=== PATIENT | female | born 1950 | race Hispanic/Latino ===

== ENCOUNTER 2017-11-09 18:53 | Observation (INO) | payer OTHER ==
[~2017-11-09] VITALS: Ht 165.1 cm; Wt 89.9 kg
[2017-11-09 19:14] LABS: APPEARANCE,URINE Cloudy (CLEAR); BILIRUBIN,URINE Negative (NEGATIVE); COLOR,URINE Yellow (YELLOW); GLUCOSE, URINE (UA) Negative (NEGATIVE); KETONES,URINE Negative (NEGATIVE); LEUKOCYTE ESTERASE ,URINE Large (NEGATIVE); NITRATE,URINE Negative (NEGATIVE); OCCULT BLOOD,URINE Small (NEGATIVE); PH,URINE 5.5 (5.0-8.0); PROTEIN,URINE POS 1+ (NEGATIVE)
[2017-11-09] MEDS ORDERED: ACETAMINOPHEN 325 MG TAB ONE (19:45)
[2017-11-09 19:48] LABS: BASOPHILS % (AUTO) 0.8 % (0.0-5.0); EOSINOPHILS % (AUTO) 1.5 % (0.0-8.0); HEMATOCRIT 38.3 % (36-48); LYMPHOCYTES % (AUTO) 23.2 % (21.0-51.0); MEAN CORPUSCULAR HEMOGLOBIN 30.3 pg (27.0-33.0); MEAN CORPUSCULAR HGB CONC 34.1 g/dL (32.0-36.0); MEAN CORPUSCULAR VOLUME 88.8 fL (79-99); MONOCYTES % (AUTO) 14.1 % (3.0-13.0); NEUTROPHILS % (AUTO) 60.4 % (40.0-77.0); PLATELET COUNT (AUTO) 275 K/uL (130-400); RED BLOOD CELL COUNT(AUTO) 4.31 MIL/uL (4.00-5.50); RED CELL DISTRIBUTION WIDTH 13.1 % (11.0-15.5); WHITE BLOOD COUNT (AUTO) 8.2 K/uL (4.8-10.8)
[2017-11-09 19:55] LABS: BACTERIA,URINE Rare /HPF (None Seen); RBC,URINE 0-1 /HPF (0-1); WBC,URINE >100 /HPF (0-1)
[2017-11-09 19:56] LABS: MUCUS,URINE Many LPF (None Seen)
[2017-11-09 20:06] LABS: CREATININE 0.8 mg/dL (0.5-1.5)
[2017-11-09 20:11] LABS: ALBUMIN 3.4 g/dL (3.5-5.0); BILIRUBIN,TOTAL 0.3 mg/dL (0.2-1.0); TOTAL PROTEIN, SERUM 7.1 g/dL (6.0-8.3)
[2017-11-09] MEDS ORDERED: SODIUM CHLORIDE 0.9% 1000ML 1,000 ML IV ONE (21:42)
[2017-11-09] MEDS ORDERED: ACETAMINOPHEN 325 MG TAB PO PRN ×3 (21:45→22:15)
[2017-11-09] MEDS ORDERED: ONDANSETRON HCL 4 MG/2 ML VIAL IVP PRN (21:45)
[2017-11-09] MEDS ORDERED: CEFTRIAXONE SODIUM 1 GM IVP SCH (21:45)
[2017-11-09] MEDS: SODIUM CHLORIDE 0.9% 1000ML 1,000 ML IV SCH (21:45)
[2017-11-09] MEDS ORDERED: MORPHINE SULFATE 4 MG/1ML SYG IVP PRN (21:45)
[2017-11-09] MEDS ORDERED: LIDOCAINE HCL-MPF 1% 2ML VIAL IVP PRN (22:15)
[2017-11-09] MEDS ORDERED: LACTULOSE 20 GM/30 ML UDCUP PO PRN (22:15)
[2017-11-09] MEDS ORDERED: NAPROXEN 500 MG TABLET PO PRN (22:15)
[2017-11-09] MEDS ORDERED: MAG HYDROX/AL HYDROX/SIMETH ES 30 ML SUSP UDCUP PO PRN (22:15)
[2017-11-09] MEDS ORDERED: POTASSIUM CHLORIDE 20 MEQ ERTAB PO PRN (22:15)
[2017-11-09] MEDS ORDERED: POTASSIUM CHLORIDE 10% ELIXIR 20 MEQ/15 ML UDCUP PO PRN (22:15)
[2017-11-09] MEDS ORDERED: POTASSIUM CHLORIDE 20MEQ/100ML 100 ML IV PRN (22:15)
[2017-11-09] MEDS ORDERED: ONDANSETRON HCL MDV 20ML 2 MG/ML VIAL IV PRN (22:15)
[2017-11-09] MEDS ORDERED: MORPHINE SULFATE 4 MG/1ML SYG IV PRN (22:15)
[2017-11-09] MEDS ORDERED: ACETAMINOPHEN-CODEINE 300/30MG TAB PO PRN (22:15)
[2017-11-09 23:16] VITALS: BP 130/63
[2017-11-10] VITALS (13 sets, daily range): BP systolic 112–158; BP diastolic 60–72
[2017-11-10] MEDS ORDERED: LORAZEPAM 0.5 MG TABLET ONE (00:10)
[2017-11-10] MEDS ORDERED: LORAZEPAM 0.5 MG TABLET PO PRN (00:15)
[2017-11-10] MEDS ORDERED: MAGNESIUM HYDROXIDE 30 ML/UDCUP PO PRN (00:15)
[2017-11-10 00:54] LABS: CREATINE KINASE MB 0.5 ng/mL (0.5-3.6); CREATINE KINASE, TOTAL 56 U/L (21-232); MYOGLOBIN 23 ng/mL (10-92); TROPONIN I < 0.04 ng/mL (0.00-0.06)
[2017-11-10] MEDS ORDERED: SUCRALFATE 1 GM/10 ML PO PRN (01:30)
[2017-11-10] MEDS: SODIUM CHLORIDE 0.9% 1000ML 1,000 ML IV SCH ×3 (03:59→16:53)
[2017-11-10 05:40] LABS: HEMATOCRIT 34.9 % (36-48); MEAN CORPUSCULAR HEMOGLOBIN 30.7 pg (27.0-33.0); MEAN CORPUSCULAR HGB CONC 34.7 g/dL (32.0-36.0); MEAN CORPUSCULAR VOLUME 88.4 fL (79-99); PLATELET COUNT (AUTO) 244 K/uL (130-400); RED BLOOD CELL COUNT(AUTO) 3.94 MIL/uL (4.00-5.50); RED CELL DISTRIBUTION WIDTH 13.2 % (11.0-15.5); WHITE BLOOD COUNT (AUTO) 8.6 K/uL (4.8-10.8)
[2017-11-10 05:49] LABS: CREATININE 0.8 mg/dL (0.5-1.5); POTASSIUM 4.7 mmol/L (3.5-5.1)
[2017-11-10] MEDS ORDERED: PANTOPRAZOLE SODIUM 40 MG TABLET.DR PO SCH (09:00)
[2017-11-10] MEDS ORDERED: ENOXAPARIN SODIUM 30 MG/0.3 ML SQ SCH (09:00)
[2017-11-10] MEDS ORDERED: LEVOTHYROXINE 125 MCG TABLET PO SCH (09:00)
[2017-11-10] MEDS ORDERED: LACTATED RINGERS 1000ML 1,000 ML IV ONE (09:04)
[2017-11-10] MEDS ORDERED: ISOVUE-370 50ML VIAL IV ONE (09:22)
[2017-11-10] MEDS ORDERED: ONDANSETRON HCL 4 MG/2 ML VIAL ONE (09:38)
[2017-11-10] MEDS ORDERED: DEXAMETHASONE SOD PHOSPHATE 10MG/ML 1ML VIAL ONE (09:38)
[2017-11-10] MEDS ORDERED: MIDAZOLAM HCL 1 MG/ML 2ML VIAL ONE (09:38)
[2017-11-10] MEDS ORDERED: GLYCOPYRROLATE 0.2 MG/ML 5 ML VIAL ONE (09:38)
[2017-11-10] MEDS ORDERED: PROPOFOL 10 MG/ML 20ML VIAL IV ONE (09:38)
[2017-11-10] MEDS ORDERED: FENTANYL CITRATE PF 50 MCG/1 ML 2ML VIAL ONE (09:38)
[2017-11-10] MEDS ORDERED: LIDOCAINE PF 2% 5ML ABBOJECT ONE (09:38)
[2017-11-10] MEDS ORDERED: OPIUM/BELLADONNA ALKALOIDS 1 EACH SUPP.RECT RC ONE (10:50)
[2017-11-10] MEDS ORDERED: PHENAZOPYRIDINE HCL 200 MG TABLET PO SCH (12:11)
[2017-11-10] MEDS ORDERED: GABAPENTIN 300 MG CAPSULE PO SCH (21:00)
== END 2017-11-10 18:05 | disposition home or self-care (01) ==
LOC: EDH 18:53 → EDHIP 20:55 → 3AH 22:27
PROVIDERS: ADMIT Internal Medicine; ATTEND Internal Medicine
DX: N13.2 Hydronephrosis with renal and ureteral calculous obstruction (principal); E03.9 Hypothyroidism, unspecified; E78.5 Hyperlipidemia, unspecified; L80 Vitiligo; M48.02 Spinal stenosis, cervical region; M79.7 Fibromyalgia; M85.80 Other specified disorders of bone density and structure, unspecified site; M19.90 Unspecified osteoarthritis, unspecified site; F41.1 Generalized anxiety disorder; Z82.0 Family history of epilepsy and other diseases of the nervous system; Z80.3 Family history of malignant neoplasm of breast; Z82.49 Family history of ischemic heart disease and other diseases of the circulatory system; Z82.5 Family history of asthma and other chronic lower respiratory diseases; Z83.3 Family history of diabetes mellitus; Z87.440 Personal history of urinary (tract) infections; Z87.442 Personal history of urinary calculi; Z96.651 Presence of right artificial knee joint; Z98.84 Bariatric surgery status
CPT/HCPCS: 36415 ×2; 52356; 74176; 76000; 80048; 80053; 81001; 82360; 82550; 82553; 82948 ×4; 83874; 84484; 85025; 85027; 87040 ×2; 87088; 87186; 88300; 93005; 96374; 96375; 99285; A4218; A4344; A4358; A4450; A5113; A6207; C1726; C1758; C1769; C2617; G0378 ×21; J0696; J1100; J2001; J2250; J2270; J2405; J2704; J3010; J3490; J7030 ×2; J7120; Q9967

== ENCOUNTER → 2017-11-09 | Outpatient (CLI) | payer OTHER ==
[~2017-11-09] MED LIST: ATOR40TA71 PO; CEPH250C3 PO; CYAN250010 PO; GABA-531 PO; LEVO125T11 PO; NAPR-1023 PO; OXYB10TA PO; TYL3 PO
== END | disposition home or self-care (01) ==
LOC: RAH 14:06
PROVIDERS: ATTEND Urology
DX: N20.2 Calculus of kidney with calculus of ureter (principal); N13.30 Unspecified hydronephrosis; I87.8 Other specified disorders of veins; M47.895 Other spondylosis, thoracolumbar region
CPT/HCPCS: 74176

== ENCOUNTER → 2018-09-13 | Outpatient (CLI) | payer OTHER | END | disposition home or self-care (01) | LOC: RAH 10:00 | PROVIDERS: ATTEND Internal Medicine | DX: Z01.818 Encounter for other preprocedural examination (principal) | CPT/HCPCS: 71046 ==

== ENCOUNTER 2018-09-20 14:30 | Inpatient (IN) | payer OTHER ==
[~2018-09-20] VITALS: Ht 162.6 cm; Wt 95.7 kg
[2018-09-20 16:29] VITALS: BP 153/76
[2018-09-20 16:36] LABS: APPEARANCE,URINE Clear (CLEAR); BILIRUBIN,URINE Negative (NEGATIVE); COLOR,URINE Dark Yellow (YELLOW); GLUCOSE, URINE (UA) Negative (NEGATIVE); KETONES,URINE Negative (NEGATIVE); LEUKOCYTE ESTERASE ,URINE Moderate (NEGATIVE); NITRATE,URINE Negative (NEGATIVE); OCCULT BLOOD,URINE Negative (NEGATIVE); PH,URINE 5.5 (5.0-8.0); PROTEIN,URINE Negative (NEGATIVE)
[2018-09-20 16:46] LABS: POTASSIUM 4.9 mmol/L (3.5-5.1)
[2018-09-20 16:47] LABS: INR 0.96 (0.85-1.15); PARTIAL THROMBOPLASTIN TIME 25.4 SEC (26.3-35.5); PROTHROMBIN TIME 10.1 SEC (9.6-11.6)
[2018-09-20 16:49] LABS: BACTERIA,URINE Few /HPF (None Seen); CALCIUM OXALATE CRYSTALS,UR Few /LPF (None Seen); HYALINE CASTS, URINE 0-1 /LPF (0-1 /LPF); MUCUS,URINE Few LPF (None Seen); RBC,URINE None Seen /HPF (0-1)
--- NOTE | 2018-09-20 17:50 | NUR ---
Advised Tristin Mcclain of EKG on 09/06/18 , no new orders.
--- NOTE | 2018-09-20 18:02 | NUR ---
REPORTED ABNORMAL UA RESULTS TO DR. HOLT, ORDERS RECEIVED TO GIVE GENTAMICIN 240MG IV IN HOLDING AREA.
[2018-09-21] VITALS (25 sets, daily range): BP systolic 118–146; BP diastolic 52–88
[2018-09-21] MEDS ORDERED: LACTATED RINGERS 1000ML 1,000 ML IV ONE (07:47)
[2018-09-21] MEDS ORDERED: GENTAMICIN SULFATE 240 MG in SODIUM CHLORIDE 0.9% 100 ML IV PRN (08:00)
--- NOTE | 2018-09-21 08:00 | NUR ---
RELAXATION aromatab applied to mohamudn lavender scent Addendum: 09/21/18 at 0820 by CECE SEBASTIAN RN RN Amended: Links added.
[2018-09-21] MEDS: CEFAZOLIN SODIUM 1 GM VIAL ONE ×2 (08:13→13:14)
[2018-09-21] MEDS ORDERED: LEVO75TA10 PO (08:18)
[2018-09-21] MEDS ORDERED: DULO60CA63 PO (08:18)
--- NOTE | 2018-09-21 08:21 | NUR ---
POTENTIAL FOR INFECTION: NO SHAVING NEEDED TO RIGHT LEG / KNEE. WIPED WITH NOELLE: 2 % CHLORHEXIDINE GLUCONATE CLOTH PRE-OP PATIENTS SKIN PREP PER TREASURE CRUMP MA.
[2018-09-21] MEDS ORDERED: CEFAZOLIN SODIUM 1 GM VIAL ONE ×2 (08:30→13:58)
[2018-09-21] MEDS ORDERED: TRANEXAMIC ACID 1000MG/10ML IV ONE ×3 (08:30→15:57)
[2018-09-21] MEDS ORDERED: VANCOMYCIN HCL 1 GM VIAL ONE (09:58)
[2018-09-21] MEDS ORDERED: FENTANYL CITRATE PF 50 MCG/1 ML 2ML VIAL ONE ×2 (10:50→12:13)
[2018-09-21] MEDS ORDERED: DEXAMETHASONE SOD PHOSPHATE 10MG/ML 1ML VIAL ONE (10:50)
[2018-09-21] MEDS ORDERED: MIDAZOLAM HCL 1 MG/ML 2ML VIAL ONE (10:50)
[2018-09-21] MEDS ORDERED: ONDANSETRON HCL 4 MG/2 ML VIAL ONE (10:50)
[2018-09-21] MEDS ORDERED: PROPOFOL 10 MG/ML 20ML VIAL IV ONE (10:50)
[2018-09-21] MEDS ORDERED: LIDOCAINE PF 2% 5ML ABBOJECT ONE (10:50)
[2018-09-21] MEDS ORDERED: EPHEDRINE SULFATE 50 MG/ML AMPULE ONE (11:36)
[2018-09-21] MEDS ORDERED: ROCURONIUM 10MG/1ML SYR 10 MG/ML ML ONE ×2 (12:13→13:44)
[2018-09-21] MEDS ORDERED: CALCIUM CARBONATE 500 MG TABLET PO PRN (15:00)
[2018-09-21] MEDS ORDERED: FERROUS FUMARATE 324 MG TABLET PO PRN (15:00)
[2018-09-21] MEDS ORDERED: POTASSIUM CHLORIDE 10% ELIXIR 20 MEQ/15 ML UDCUP PO PRN (15:00)
[2018-09-21] MEDS ORDERED: POTASSIUM CHLORIDE 20 MEQ ERTAB PO PRN (15:00)
[2018-09-21] MEDS ORDERED: POTASSIUM CHLORIDE 20MEQ/100ML 100 ML IV PRN (15:00)
[2018-09-21] MEDS ORDERED: ONDANSETRON HCL 4 MG/2 ML VIAL IVP PRN (15:00)
[2018-09-21] MEDS ORDERED: TEMAZEPAM 15 MG CAPSULE PO PRN (15:00)
[2018-09-21] MEDS ORDERED: LIDOCAINE HCL-MPF 1% 2ML VIAL IVP PRN (15:00)
[2018-09-21] MEDS: ACETAMINOPHEN EXTRA STRENGTH 500 MG TABLET PO SCH ×2 (15:00→21:59)
[2018-09-21] MEDS ORDERED: DiphenhydrAMINE HCL 50 MG/ML VIAL IVP PRN (15:00)
[2018-09-21] MEDS ORDERED: OXYCODONE HCL 5 MG TAB PO PRN (15:00)
[2018-09-21] MEDS ORDERED: TRAMADOL HCL 50 MG TABLET PO PRN (15:00)
[2018-09-21] MEDS ORDERED: GLYCOPYRROLATE 1 MG/5 ML SYRINGE ONE (15:06)
[2018-09-21] MEDS ORDERED: NEOSTIGMINE 5MG/5ML SYR IV ONE (15:06)
[2018-09-21] MEDS ORDERED: MEPERIDINE-PF 25 MG/ML SYG ONE ×3 (15:35→16:42)
[2018-09-21] MEDS ORDERED: MORPHINE SULFATE 4 MG/1ML SYG ONE (15:36)
[2018-09-21] MEDS ORDERED: ESMOLOL HCL 10 MG/ML 10 ML VIAL ONE (15:36)
[2018-09-21] MEDS: SODIUM CHLORIDE 0.9% 1000ML 1,000 ML IV SCH (17:43)
[2018-09-21 18:14] LABS: APPEARANCE BODY FLUID SLIGHTLY CLOUDY (CLEAR); BODY FLUID WBC 177 /cu. mm.; COLOR,BODY FLUID YELLOW (LT YELLOW); SPECIMENTYPE,BODY FLUID SYNOVIAL; TOTAL VOLUME,BODY FLUID 10 mL
[2018-09-21 18:15] LABS: BODY FLUID RBC 2047 /cu. mm.
[2018-09-21] MEDS: OXYCODONE HCL 5 MG TAB PO PRN ×2 (18:49→22:39)
[2018-09-21] MEDS: KETOROLAC TROMETHAMINE 15MG/ML IV PRN (19:52)
--- NOTE | 2018-09-21 20:05 | NUR ---
D/C PLAN CM spoke to pt regarding d/c planning. Pt is ind. and lives with spouse and adult children. Family can assist in care as needed. CM spoke to pt and spouse regarding d/c planning to SNF. Pt and spouse agreeable to plan. CM offered in network choices. Pt and spouse prefer [facility] with [facility] as second choice. Pt has standard wk without wheels at home. CM explained if needing other DME item such as BSC, item will need to be arranged when discharging from rehab. Pt and spouse verbalized understanding. CM to fax referral to [facility] and f/u. No other questions or concerns verbalized. Addendum: 09/21/18 at 2008 by JARRED DANIELS CM Amended: Links added.
--- NOTE | 2018-09-21 20:30 | NUR ---
ASSESSMENT PATIENT AWAKE, ALERT OX3, NO SOB, C/O PAIN SEE PAIN ASSESSMENT AND TREATMENT , RIGHT KNEE WITH COURT BANDAGE D/I, BLE SCDS IN PLACE, PATIENTS AT BEDSIDE , TEACH PLAN OF CARE AND EXPECTED OUTCOME, BOTH VERBALIZE UNDERSTANDING VIA TEACH BACK
[2018-09-21 20:35] LABS: BF LYMPHOCYTE 10 %; BF MONOCYTE 1 %
[2018-09-21] MEDS: CEFAZOLIN SODIUM 1 GM VIAL IVP SCH (21:52)
[2018-09-21] MEDS: PREGABALIN 25 MG CAP PO SCH (21:59)
[2018-09-21] MEDS: DULOXETINE HCL 30 MG CAP PO SCH (21:59)
[2018-09-21] MEDS: FAMOTIDINE 20MG TAB 20 MG TAB PO SCH (21:59)
[2018-09-21] MEDS: ASPIRIN 325 MG TABLET PO SCH (21:59)
[2018-09-21] MEDS: OXYBUTYNIN 5 MG TAB.SR.24H PO SCH (21:59)
[2018-09-21] MEDS: ATORVASTATIN CALCIUM 40 MG TABLET PO SCH (21:59)
[2018-09-21] MEDS: CELECOXIB 200 MG CAP PO SCH (21:59)
[2018-09-22] MEDS: SODIUM CHLORIDE 0.9% 1000ML 1,000 ML IV SCH ×2 (00:04→10:55)
[2018-09-22 03:30] VITALS: BP 107/63
[2018-09-22] MEDS: CEFAZOLIN SODIUM 1 GM VIAL IVP SCH (03:52)
[2018-09-22 04:21] LABS: HEMATOCRIT 37.9 % (36-48); MEAN CORPUSCULAR HGB CONC 33.2 g/dL (32.0-36.0); MEAN CORPUSCULAR VOLUME 90.3 fL (79-99); PLATELET COUNT (AUTO) 276 K/uL (130-400); RED BLOOD CELL COUNT(AUTO) 4.19 MIL/uL (4.00-5.50); RED CELL DISTRIBUTION WIDTH 13.4 % (11.0-15.5); WHITE BLOOD COUNT (AUTO) 10.4 K/uL (4.8-10.8)
[2018-09-22 04:39] LABS: POTASSIUM 4.6 mmol/L (3.5-5.1)
[2018-09-22] MEDS: KETOROLAC TROMETHAMINE 15MG/ML IV PRN ×3 (06:08→22:17)
[2018-09-22] MEDS: LEVOTHYROXINE 125 MCG TABLET PO SCH (06:08)
[2018-09-22] MEDS: ACETAMINOPHEN EXTRA STRENGTH 500 MG TABLET PO SCH ×3 (06:09→22:55)
[2018-09-22 07:39] VITALS: BP 118/54
[2018-09-22] MEDS: POLYETHYLENE GLYCOL 3350 17 GM POWD.PACK PO SCH (08:03)
[2018-09-22] MEDS: CELECOXIB 200 MG CAP PO SCH ×2 (08:04→20:46)
[2018-09-22] MEDS: FAMOTIDINE 20MG TAB 20 MG TAB PO SCH ×2 (08:04→20:46)
[2018-09-22] MEDS: ASPIRIN 325 MG TABLET PO SCH ×2 (08:04→20:46)
[2018-09-22] MEDS: PREGABALIN 25 MG CAP PO SCH ×2 (08:04→20:46)
[2018-09-22 11:02] VITALS: BP 116/60
[2018-09-22] MEDS: OXYCODONE HCL 5 MG TAB PO PRN (11:21)
[2018-09-22 16:22] VITALS: BP 115/63
[2018-09-22 19:30] VITALS: BP 111/53
[2018-09-22] MEDS: OXYBUTYNIN 5 MG TAB.SR.24H PO SCH (20:46)
[2018-09-22] MEDS: DULOXETINE HCL 30 MG CAP PO SCH (20:46)
[2018-09-22] MEDS: ATORVASTATIN CALCIUM 40 MG TABLET PO SCH (20:46)
[2018-09-22 23:31] VITALS: BP 111/57
[2018-09-23 04:00] VITALS: BP 106/57
[2018-09-23] MEDS: LEVOTHYROXINE 125 MCG TABLET PO SCH (06:18)
[2018-09-23] MEDS: ACETAMINOPHEN EXTRA STRENGTH 500 MG TABLET PO SCH ×2 (06:19→15:00)
[2018-09-23 07:30] VITALS: BP_SYST 113; BP_SYST 138; BP_DIAS 55; BP_DIAS 61
[2018-09-23] MEDS: CELECOXIB 200 MG CAP PO SCH (08:25)
[2018-09-23] MEDS: ASPIRIN 325 MG TABLET PO SCH (08:25)
[2018-09-23] MEDS: PREGABALIN 25 MG CAP PO SCH (08:25)
[2018-09-23] MEDS: POLYETHYLENE GLYCOL 3350 17 GM POWD.PACK PO SCH (08:26)
[2018-09-23] MEDS: FAMOTIDINE 20MG TAB 20 MG TAB PO SCH (08:26)
[2018-09-23] MEDS: OXYCODONE HCL 5 MG TAB PO PRN ×3 (08:30→18:29)
[2018-09-23] MEDS ORDERED: NITROFURANTOIN MONOHYD/M-CRYST 100 MG CAPSULE PO SCH ×2 (10:30→21:00)
[2018-09-23] MEDS ORDERED: HYDR-4457 PO (13:09)
[2018-09-23] MEDS ORDERED: ASPI-1012 PO (13:09)
--- NOTE | 2018-09-23 14:05 | NUR ---
CHEST PAIN PT C/O SUDDEN CHEST PAIN, PT IS SITTING IN THE CHAIR, PT ASSISTED BACK TO BED, PLACED 02, INFORMED WILL OBTAIN V/S.
[2018-09-23] MEDS ORDERED: NITR100C4 PO (14:09)
--- NOTE | 2018-09-23 14:10 | NUR ---
NURSING OBSERVATION/ CHEST PAIN PT'S V/S 98.1, P=73, RR=22, B/P 153/72, STATES HER PAIN RADIATES TO BACK, WILL OBTAIN EKG, CONTINUE TO MONITOR.
--- NOTE | 2018-09-23 14:15 | NUR ---
NURSING OBSERVATION INFORMED PRIMARY NURSE YANCI Mckay OF PT'S STATUS
--- NOTE | 2018-09-23 14:20 | NUR ---
CALL TO DR. HOLT T/C PLACED TO DR. HOLT, LEFT MESSAGE AND CALLED OR USER EXPERIENCE DESIGNER AND LEFT MESSAGE.
--- NOTE | 2018-09-23 14:25 | NUR ---
CALL FROM DR. HOLT T/C RETURN INFORMED OF PT'S CONDITION, ORDERS RECEIVED, YANCI PRIMARY NURSE INFORMED OF PT'S STATUS.
--- NOTE | 2018-09-23 14:30 | NUR ---
DR. LEWIS CALLED MD, NO ANSWER AT THIS TIME.
--- NOTE | 2018-09-23 14:39 | NUR ---
PAGED PAGED DR. LEWIS, NO ANSWER AT THIS TIME.
--- NOTE | 2018-09-23 14:45 | NUR ---
DR. HOLT CALLED MD TO REPORT NO ANSWER FROM DR. LEWIS. MD REPLIED TO NOTIFY HIM OF CARDIAC ENZYMES RESULTS.
[2018-09-23 15:20] LABS: CREATINE KINASE, TOTAL 105 U/L (21-232); MYOGLOBIN 62 ng/mL (10-92); TROPONIN I < 0.04 ng/mL (0.00-0.06)
--- NOTE | 2018-09-23 15:30 | NUR ---
DR. HOLT CALLED MD TO REPORT CARDIAC ENZYME RESULTS. PATIENT RESTING IN BED, STATES "I FEEL NO MORE CHEST PAIN, I FEEL A LOT BETTER NOW." I ALSO TOLD MD THAT PATIENT REPORTS FEELING NO MORE CHEST PAIN. MD REPLIED HE WOULD STOP BY TO SEE PATIENT AGAIN.
--- NOTE | 2018-09-23 15:55 | NUR ---
DR. YANET VALERA HERE TO SEE PATIENT. PATIENT STATES SHE FEELS A LOT BETTER AND SHE FEELS COMFORTABLE BEING TRANSFERRED TO [facility] TODAY.
--- NOTE | 2018-09-23 16:00 | NUR ---
DR. LEWIS MD HERE TO SEE PATIENT. STATES THAT CHEST PAIN EPISODE WAS MOST LIKELY DUE TO ANXIETY DUE TO PATIENT EXPERIENCING FAMILY ISSUES. DR. LEWIS WROTE RX FOR PROTONIX AND BUSPAR.
--- NOTE | 2018-09-23 18:00 | NUR ---
DISCHARGE PERFORMED DRESSING CHANGE TO RIGHT KNEE. RIGHT KNEE INCISION APPROXIMATED AND FREE OF REDNESS, SWELLING, OR ACTIVE DRAINAGE. CLEANSED RIGHT KNEE INCISION WITH NORMAL SALINE, PATTED DRY WITH STERILE GAUZE. COVERED RIGHT KNEE INCISION WITH DRY STERILE 4X4 GAUZE, SECURED WITH MEDIPORE TAPE, PLACED COURT BANDAGE OVER SITE. REAPPLIED KITTY HOSE TO RIGHT LEG AFTER DRESSING CHANGE. PATIENT TOLERATED PROCEDURE WELL. DISCHARGE REPORT GIVEN TO TORREY Nichole LVN OF [facility]. INFORMED OF DR. SMITH'S DISCHARGE INSTRUCTION, RX, MEDICATION RECONCILIATION, AND DRESSING CHANGES. ORIGINAL RX FOR NORCO, ASA, MACROBID, PROTONIX, AND BUSPAR PLACED IN PATIENT CHART COPY. DISCHARGE TEACHING PROVIDED TO PATIENT REGARDING RX (NOTED ABOVE), KITTY HOSE USE, SCHEDULED F/U APPT, WARNING S/S, DR. SMITH'S DISCHARGE INSTRUCTIONS. REMOVED 22G IV FROM RIGHT HAND, CATHETER INTACT. AWAITING [facility] TRANSPORT TO SERVICE DESK DIRECTOR PATIENT.
[2018-09-24] MEDS ORDERED: LEVOTHYROXINE 125 MCG TABLET PO SCH (06:30)
[2018-09-24] MEDS ORDERED: BISACODYL 10 MG SUPP.RECT RC PRN (15:00)
== END 2018-09-23 18:40 | DRG 468 ==
LOC: DAHIP 09-21 07:13 → 4BH 09-21 17:16
PROVIDERS: ADMIT Orthopaedic Surgery; ATTEND Orthopaedic Surgery
PROC: 0SPC09Z Removal of Liner from Right Knee Joint, Open Approach (ICD-10-PCS; 2018-09-21)
PROC: 0SUV09Z Supplement Right Knee Joint, Tibial Surface with Liner, Open Approach (ICD-10-PCS; 2018-09-21)
PROC: 0SPT0JZ Removal of Synthetic Substitute from Right Knee Joint, Femoral Surface, Open Approach (ICD-10-PCS; principal; 2018-09-21 11:20)
PROC: 0SRT0J9 Replacement of Right Knee Joint, Femoral Surface with Synthetic Substitute, Cemented, Open Approach (ICD-10-PCS; 2018-09-21 11:20)
DX: T84.032A Mechanical loosening of internal right knee prosthetic joint, initial encounter (principal); Y79.2 Prosthetic and other implants, materials and accessory orthopedic devices associated with adverse incidents; E03.9 Hypothyroidism, unspecified; E78.00 Pure hypercholesterolemia, unspecified; E78.5 Hyperlipidemia, unspecified; M79.7 Fibromyalgia; G89.29 Other chronic pain; M85.80 Other specified disorders of bone density and structure, unspecified site; M19.90 Unspecified osteoarthritis, unspecified site; M48.02 Spinal stenosis, cervical region; L80 Vitiligo; E66.9 Obesity, unspecified; F03.90 Unspecified dementia, unspecified severity, without behavioral disturbance, psychotic disturbance, mood disturbance, and anxiety; R07.89 Other chest pain; F41.1 Generalized anxiety disorder; Z87.440 Personal history of urinary (tract) infections; Z83.3 Family history of diabetes mellitus; Z82.49 Family history of ischemic heart disease and other diseases of the circulatory system; Y92.89 Other specified places as the place of occurrence of the external cause; Z68.36 Body mass index [BMI] 36.0-36.9, adult
CPT/HCPCS: 36415; 80048; 81001; 82550; 83874; 84484; 85027; 85610; 85730; 87070; 87076; 87205; 88108; 88300; 88304; 88305; 88311; 89051; 93005; 96365; A4218; A4344; G0378; J0690; J1100; J1885; J2001; J2175; J2250; J2270; J2405; J2704; J2710; J3010; J3370; J3490; J7030; J7120

== ENCOUNTER → 2019-02-20 | Outpatient (CLI) | payer OTHER ==
[~2019-02-20] MED LIST changes: +ASPI-1012 PO; -CEPH250C3 PO; -CYAN250010 PO; +DULO60CA64 PO; -GABA-531 PO; +HYDR-4457 PO; +LEVO75TA10 PO; -NAPR-1023 PO; +NITR100C4 PO; -OXYB10TA PO; +OXYB10TA2 PO; -TYL3 PO
== END | disposition home or self-care (01) ==
LOC: RAH 07:42
PROVIDERS: ATTEND Urology
DX: D17.71 Benign lipomatous neoplasm of kidney (principal); N20.0 Calculus of kidney; K57.90 Diverticulosis of intestine, part unspecified, without perforation or abscess without bleeding
CPT/HCPCS: 74176

== ENCOUNTER → 2020-02-05 | Outpatient (CLI) | payer OTHER ==
[~2020-02-05] MED LIST changes: -OXYB10TA2 PO; +OXYB10TA30 PO
== END | disposition home or self-care (01) ==
LOC: RAH 14:09
PROVIDERS: ATTEND Urology
DX: D17.71 Benign lipomatous neoplasm of kidney (principal); K57.30 Diverticulosis of large intestine without perforation or abscess without bleeding; K44.9 Diaphragmatic hernia without obstruction or gangrene; N13.30 Unspecified hydronephrosis; N13.4 Hydroureter; N20.0 Calculus of kidney; Z90.710 Acquired absence of both cervix and uterus
CPT/HCPCS: 74176

== ENCOUNTER 2020-02-09 09:38 | Day surgery (SDC) | payer OTHER ==
[2020-02-07 10:09] LABS: BASOPHILS % (AUTO) 1.5 % (0.0-5.0); EOSINOPHILS % (AUTO) 4.3 % (0.0-8.0); HEMATOCRIT 43.6 % (36-48); LYMPHOCYTES % (AUTO) 37.4 % (21.0-51.0); MEAN CORPUSCULAR HEMOGLOBIN 29.9 pg (27.0-33.0); MEAN CORPUSCULAR HGB CONC 31.9 g/dL (32.0-36.0); MEAN CORPUSCULAR VOLUME 93.8 fL (79-99); MONOCYTES % (AUTO) 10.6 % (3.0-13.0); PLATELET COUNT (AUTO) 302 K/uL (130-400); RED BLOOD CELL COUNT(AUTO) 4.65 MIL/uL (4.00-5.50); RED CELL DISTRIBUTION WIDTH 12.9 % (11.0-15.5); WHITE BLOOD COUNT (AUTO) 4.6 K/uL (4.8-10.8)
[2020-02-07 10:17] LABS: CREATININE 0.9 mg/dL (0.5-1.5); POTASSIUM 4.4 mmol/L (3.5-5.1)
[2020-02-09] VITALS (17 sets, daily range): BP systolic 95–145; BP diastolic 44–69
[~2020-02-09] VITALS: Ht 163.8 cm; Wt 91.2 kg
[~2020-02-09 09:38] MED LIST changes: -ASPI-1012 PO; +BIOT5000 PO; +CEFTRIAXONE SODIUM 1 GM IVP SCH; +CEPH250T PO; +CYAN250014 PO; +ESCI10TA54 PO; +FOLI0.8T PO; -HYDR-4457 PO; -LEVO75TA10 PO; +MIRA50TA PO; +MV-M1TAB20 PO; -NITR100C4 PO; +OMEP40CA13 PO; -OXYB10TA30 PO; +TOPI50CA6 PO; +ZINC50TA64 PO
[2020-02-09] MEDS ORDERED: LACTATED RINGERS 1000ML 1,000 ML IV ONE (10:24)
[2020-02-09] MEDS ORDERED: IOHEXOL-350 50ML VIAL IV ONE (11:54)
[2020-02-09] MEDS ORDERED: MIDAZOLAM HCL 1 MG/ML 2ML VIAL ONE (13:24)
[2020-02-09] MEDS ORDERED: ONDANSETRON HCL 4 MG/2 ML VIAL ONE (13:24)
[2020-02-09] MEDS ORDERED: GLYCOPYRROLATE 1 MG/5 ML SYRINGE ONE (13:24)
[2020-02-09] MEDS ORDERED: FENTANYL CITRATE PF 50 MCG/1 ML 5ML AMP IV ONE (13:24)
[2020-02-09] MEDS ORDERED: LIDOCAINE PF 2% 5ML ABBOJECT ONE (13:24)
[2020-02-09] MEDS ORDERED: PROPOFOL 10 MG/ML 20ML VIAL IV ONE (13:24)
[2020-02-09] MEDS ORDERED: ROCURONIUM 10MG/1ML SYR 10 MG/ML ML ONE (13:29)
[2020-02-09] MEDS ORDERED: NEOSTIGMINE 5MG/5ML SYR IV ONE (13:30)
[2020-02-09] MEDS ORDERED: EPHEDRINE SULFATE 50 MG/ML AMPULE ONE (13:40)
--- NOTE | 2020-02-09 15:30 | NUR ---
post op received pt and report from ulises chau from [facility]. pt in no distress with sena cath bag with blood tinge urine. pt oriented to room and call light. will continue to monitor pt
[2020-02-09] MEDS ORDERED: PHENAZOPYRIDINE HCL 200 MG TABLET ONE (15:33)
--- NOTE | 2020-02-09 15:50 | NUR ---
f/c removed sena cath with ease post removal of 10mls of fluid. pt tolerated it well.
--- NOTE | 2020-02-09 16:00 | NUR ---
discharge pt and daughter given d/c instructions and script. both voiced understanding. pt taken out via w/c in no distress.
== END 2020-02-09 16:00 | disposition home or self-care (01) ==
LOC: DAH 09:38
PROVIDERS: ATTEND Urology
DX: N13.2 Hydronephrosis with renal and ureteral calculous obstruction (principal); Z20.828 Contact with and (suspected) exposure to other viral communicable diseases; E03.9 Hypothyroidism, unspecified; Z79.899 Other long term (current) drug therapy; Z79.890 Hormone replacement therapy
CPT/HCPCS: 36415 ×2; 52332; 52352; 74018; 80048; 82360; 85025; A4215; A4221; A4222; A4223; A4344; A4358; A4510; A4600; A4663; A6260; C1726; C1758; C1769; C2617; C9803; J0696; J2001; J2250; J2405; J2704; J2710; J3010; J3490 ×2; J7030; J7120 ×2; U0003; Q9967

== ENCOUNTER 2020-03-19 11:52 | Observation (INO) | payer OTHER ==
[~2020-03-19] VITALS: Ht 165.1 cm; Wt 90.4 kg
[~2020-03-19 11:52] MED LIST changes: -CEFTRIAXONE SODIUM 1 GM IVP SCH
[2020-03-19 12:50] LABS: BASOPHILS % (AUTO) 1.4 % (0.0-5.0); EOSINOPHILS % (AUTO) 1.9 % (0.0-8.0); LYMPHOCYTES % (AUTO) 31.3 % (21.0-51.0); MEAN CORPUSCULAR HEMOGLOBIN 30.4 pg (27.0-33.0); MEAN CORPUSCULAR HGB CONC 32.6 g/dL (32.0-36.0); MEAN CORPUSCULAR VOLUME 93.5 fL (79-99); MONOCYTES % (AUTO) 9.9 % (3.0-13.0); NEUTROPHILS % (AUTO) 55.3 % (40.0-77.0); PLATELET COUNT (AUTO) 263 K/uL (130-400); RED CELL DISTRIBUTION WIDTH 12.5 % (11.0-15.5); WHITE BLOOD COUNT (AUTO) 5.1 K/uL (4.8-10.8)
[2020-03-19 13:01] LABS: INR 0.92 (0.85-1.15); PARTIAL THROMBOPLASTIN TIME 20.6 SEC (26.3-35.5)
[2020-03-19 13:05] LABS: CREATININE 0.9 mg/dL (0.5-1.5); POTASSIUM 3.7 mmol/L (3.5-5.1)
[2020-03-19 13:09] LABS: ALBUMIN 3.9 g/dL (3.5-5.0); BILIRUBIN,TOTAL 0.4 mg/dL (0.2-1.0); TOTAL PROTEIN, SERUM 7.6 g/dL (6.0-8.3)
[2020-03-19 13:37] LABS: B-TYPE NATRIURETIC PEPTIDE 15 pg/mL (0-100)
[2020-03-19] MEDS ORDERED: LEVO88TA4 PO (14:08)
[2020-03-19] MEDS ORDERED: BUSP10TA3 PO (14:10)
[2020-03-19] MEDS ORDERED: ACET1TAB25 PO (14:10)
[2020-03-19] MEDS ORDERED: ASPI-449 PO (14:10)
[2020-03-19] MEDS ORDERED: FAMO20TA8 PO (14:10)
[2020-03-19] MEDS ORDERED: NON-FORMULARY MEDICATION 1 EACH (Buspirone HCl 10 MG) PO PRN (14:15)
[2020-03-19] MEDS ORDERED: BUSPIRONE HCL 5 MG TABLET PO PRN (15:45)
--- NOTE | 2020-03-19 16:27 | NUR ---
HISTORY CHLORIC BLADDER INFECTIONS Addendum: 03/19/20 at 1652 by TSERING HICKS RN RN Amended: Links added.
[2020-03-19 17:00] VITALS: BP 119/97
[2020-03-19] MEDS ORDERED: POTASSIUM CHLORIDE 20 MEQ ERTAB PO PRN (17:45)
[2020-03-19] MEDS ORDERED: DEXTROSE 50%-WATER 50 ML DISP.SYRIN IV PRN (17:45)
[2020-03-19] MEDS ORDERED: GLUCAGON 1MG KIT 1 MG ML IM PRN (17:45)
[2020-03-19] MEDS ORDERED: POTASSIUM CHLORIDE 20MEQ/100ML 100 ML IV PRN (17:45)
[2020-03-19] MEDS ORDERED: LIDOCAINE HCL-MPF 1% 2ML VIAL IJ PRN (17:45)
[2020-03-19] MEDS ORDERED: NITROGLYCERIN 0.4 MG SL TAB SL PRN (17:45)
[2020-03-19] MEDS ORDERED: POTASSIUM CHLORIDE 10% ELIXIR 20 MEQ/15 ML UDCUP PO PRN (17:45)
[2020-03-19 20:00] VITALS: BP 132/65
[2020-03-19] MEDS: ACETAMINOPHEN-CODEINE 300/30MG TAB PO PRN (20:54)
[2020-03-19] MEDS ORDERED: DULOXETINE HCL 30 MG CAP PO SCH (21:00)
[2020-03-19] MEDS: INSULIN R PO SS1 SQ SCH (21:00)
[2020-03-19] MEDS ORDERED: ATORVASTATIN CALCIUM 40 MG TABLET PO SCH (21:00)
[2020-03-19] MEDS ORDERED: NON-FORMULARY MEDICATION 1 EACH (Duloxetine HCl 60 MG) PO SCH (21:00)
[2020-03-20] VITALS (10 sets, daily range): BP systolic 110–141; BP diastolic 49–77
[2020-03-20] MEDS: INSULIN R PO SS1 SQ SCH ×3 (05:58→16:11)
[2020-03-20] MEDS ORDERED: LEVOTHYROXINE 88 MCG TABLET PO SCH (06:30)
[2020-03-20] MEDS ORDERED: MAG HYDROX/AL HYDROX/SIMETH ES 30 ML SUSP UDCUP PO PRN (08:15)
[2020-03-20] MEDS ORDERED: DIPHENHYDRAMINE HCL 25 MG CAPSULE PO PRN (08:15)
[2020-03-20] MEDS ORDERED: DiphenhydrAMINE HCL 50 MG/ML VIAL IV PRN (08:15)
[2020-03-20] MEDS ORDERED: LACTULOSE 20 GM/30 ML UDCUP PO PRN (08:15)
[2020-03-20] MEDS ORDERED: ONDANSETRON HCL 4 MG/2 ML VIAL IV PRN (08:15)
[2020-03-20] MEDS ORDERED: SODIUM CHLORIDE 0.9% 1000ML 1,000 ML IV SCH (08:15)
[2020-03-20] MEDS ORDERED: ACETAMINOPHEN 325 MG TAB PO PRN ×2 (08:15)
[2020-03-20] MEDS ORDERED: TOPIRAMATE 50 MG PO SCH (09:00)
[2020-03-20] MEDS ORDERED: FAMOTIDINE 20MG TAB 20 MG TAB PO SCH (09:00)
[2020-03-20] MEDS ORDERED: NON-FORMULARY MEDICATION 1 EACH (Escitalopram Oxalate 10 MG) PO SCH (09:00)
[2020-03-20] MEDS ORDERED: MIRABEGRON 50 MG PO SCH (09:00)
[2020-03-20] MEDS ORDERED: MIRABEGRON 50MG PO SCH (09:00)
[2020-03-20] MEDS ORDERED: ESCITALOPRAM 10MG PO SCH (09:00)
[2020-03-20] MEDS ORDERED: TOPIRAMATE PO SCH (09:00)
[2020-03-20] MEDS ORDERED: ASPIRIN 81 MG EC TAB PO SCH (09:00)
[2020-03-20] MEDS ORDERED: ENOXAPARIN SODIUM 40 MG/0.4 ML SYRINGE SQ SCH (09:00)
[2020-03-20] MEDS ORDERED: LEVOTHYROXINE SODIUM 88 MCG PO SCH (09:00)
[2020-03-20] MEDS ORDERED: NICARDIPINE HCL 25 MG/10 ML ML IV ONE (10:41)
[2020-03-20] MEDS ORDERED: IOHEXOL-350 75 ML VIAL IV ONE (10:41)
[2020-03-20] MEDS ORDERED: NITROGLYCERIN 2 MG/VIAL VIAL IV ONE (10:41)
[2020-03-20] MEDS ORDERED: HEPARIN SODIUM 1000UNIT/ML 10ML VIAL ONE (10:41)
[2020-03-20] MEDS ORDERED: SODIUM BICARB 50MEQ 50ML VIAL 50 ML ONE (10:41)
[2020-03-20] MEDS ORDERED: FENTANYL CITRATE PF 50 MCG/1 ML 2ML VIAL ONE (10:42)
[2020-03-20] MEDS ORDERED: LIDOCAINE HCL 2% 20ML ONE (10:42)
[2020-03-20] MEDS ORDERED: MIDAZOLAM HCL 1 MG/ML 2ML VIAL ONE (10:42)
[2020-03-20] MEDS ORDERED: CLOPIDOGREL BISULFATE 300 MG TAB ONE (12:00)
[2020-03-20] MEDS ORDERED: CLOP75TA32 PO (12:19)
[2020-03-20] MEDS ORDERED: AEC81 PO (12:19)
[2020-03-20] MEDS: ACETAMINOPHEN-CODEINE 300/30MG TAB PO PRN (13:01)
--- NOTE | 2020-03-20 13:55 | NUR ---
JJ YOUSSEF Spoke with patients spouse (Laura Waite [phone]). As per spouse, patient lives at home with him. Before this admission he was independent with ADLs, and has a cane available to her at home. No home services or any other DME reported. Spouse to assist with transport home at discharge. CM to follow up. Addendum: 03/20/20 at 1358 by CLIFF CRABTREE Amended: Links added.
--- NOTE | 2020-03-20 15:15 | NUR ---
TR-BAND REMOVED 2ML AIR FROM TR BAND AT APPROX 1335 HOURS; 1350 HOURS; 1410 HOURS; 1425 HOURS; 1445 HOURS. PLACED 2X2 GAUZE AND SECURED GAUZE WITH TAPE. NO BLEEDING OBSERVED, PATIENT TOLERATED WITHOUT INCIDENT.
--- NOTE | 2020-03-20 18:15 | NUR ---
PATIENT DISCHARGE PATIENT DISCHARGE, IV DISCONTINUED, CATHLON INTACT, BLEEDING CONTROLLED, PATIENT TOLERATED WITHOUT INCIDENT. PROVIDED PATIENT WITH WRITTEN RX FOR NEW MEDICATIONS, PATIENT STATED SHE WOULD HAVE THEM FILLED AT [facility] BY [facility]. DISCUSSED WITH PATIENT TWO FOLLOW UP APPOINTMENTS, PATIENT STATED SHE UNDERSTOOD AND HAD NO ADDITIONAL QUESTIONS.
[2020-03-21] MEDS ORDERED: CLOPIDOGREL BISULFATE 75 MG TAB PO SCH (09:00)
[2020-03-21] MEDS ORDERED: ASPIRIN 81MG TAB.CHEW PO SCH (09:00)
== END 2020-03-20 18:32 | disposition home or self-care (01) ==
LOC: EDH 11:52 → EDHIP 11:53 → INTOOBSV 11:53 → 4AH 17:17 → DAHIP 03-20 18:21 → 4AH 03-20 18:21
PROVIDERS: ADMIT Internal Medicine; ATTEND Internal Medicine
DX: I25.110 Atherosclerotic heart disease of native coronary artery with unstable angina pectoris (principal); E03.9 Hypothyroidism, unspecified; E78.2 Mixed hyperlipidemia; F41.1 Generalized anxiety disorder; F32.1 Major depressive disorder, single episode, moderate; M19.90 Unspecified osteoarthritis, unspecified site; M79.7 Fibromyalgia; G89.29 Other chronic pain; F03.90 Unspecified dementia, unspecified severity, without behavioral disturbance, psychotic disturbance, mood disturbance, and anxiety; E11.40 Type 2 diabetes mellitus with diabetic neuropathy, unspecified; R76.8 Other specified abnormal immunological findings in serum; M51.9 Unspecified thoracic, thoracolumbar and lumbosacral intervertebral disc disorder; M48.02 Spinal stenosis, cervical region; L80 Vitiligo; N20.0 Calculus of kidney; R32 Unspecified urinary incontinence; D17.71 Benign lipomatous neoplasm of kidney; Z87.891 Personal history of nicotine dependence; Z87.440 Personal history of urinary (tract) infections; Z98.84 Bariatric surgery status; Z96.651 Presence of right artificial knee joint; Z79.4 Long term (current) use of insulin; Z79.02 Long term (current) use of antithrombotics/antiplatelets; Z79.82 Long term (current) use of aspirin; Z79.899 Other long term (current) drug therapy
CPT/HCPCS: 36415; 71045 ×2; 80053; 82948 ×4; 83735; 83880; 84484; 85025; 85610; 85730; 93005; 93458; 96360; 96361; 99285; C1769; C1894; G0378 ×30; J1644 ×2; J2250; J3010; J3490 ×4; Q9967; 99156; 99157

== ENCOUNTER 2022-06-01 17:43 | Observation (INO) | payer MEDICARE, OTHER ==
[~2022-06-01] VITALS: Ht 162.6 cm; Wt 102.5 kg
[~2022-06-01 17:43] MED LIST changes: +ACET-2079 PO; +AEC81 PO; -BIOT5000 PO; +BUSP10TA3 PO; -CEPH250T PO; +CLOP75TA32 PO; -CYAN250014 PO; +ESCI-8 PO; -ESCI10TA54 PO; +FAMO20TA8 PO; -FOLI0.8T PO; -LEVO125T11 PO; +LEVO88TA4 PO; -MV-M1TAB20 PO; -OMEP40CA13 PO; -ZINC50TA64 PO
[2022-06-01] MEDS ORDERED: ONDANSETRON 4MG INJ IVP ONE ×4 (18:00→21:30)
[2022-06-01 18:25] LABS: BASOPHILS % (AUTO) 0.5 % (0.0-5.0); HEMATOCRIT 44.2 % (36-48); MEAN CORPUSCULAR HEMOGLOBIN 28.3 pg (27.0-33.0); MEAN CORPUSCULAR HGB CONC 32.8 g/dL (32.0-36.0); MEAN CORPUSCULAR VOLUME 86.2 fL (79-99); NEUTROPHILS % (AUTO) 74.2 % (40.0-77.0); PLATELET COUNT (AUTO) 294 K/uL (130-400); RED BLOOD CELL COUNT(AUTO) 5.13 MIL/uL (4.00-5.50); RED CELL DISTRIBUTION WIDTH 13.2 % (11.0-15.5); WHITE BLOOD COUNT (AUTO) 15.4 K/uL (4.8-10.8)
[2022-06-01 18:34] LABS: POTASSIUM 4.6 mmol/L (3.5-5.1)
[2022-06-01] MEDS ORDERED: MORPHINE 4 MG SYG IVP STA (18:39)
[2022-06-01] MEDS ORDERED: PANTOPRAZOLE 40 MG/VIAL IVP STA (18:39)
[2022-06-01 18:42] LABS: ALBUMIN 4.3 g/dL (3.5-5.0); TOTAL PROTEIN, SERUM 8.3 g/dL (6.0-8.3)
[2022-06-01] MEDS ORDERED: 0.9%NACL 1000ML 1,000 ML IV ONE (19:00)
[2022-06-01 21:04] LABS: APPEARANCE,URINE CLEAR (CLEAR); BILIRUBIN,URINE NEGATIVE (NEGATIVE); COLOR,URINE YELLOW (YELLOW); GLUCOSE, URINE (UA) NEGATIVE (NEGATIVE); KETONES,URINE 60 mg/dL (NEGATIVE); LEUKOCYTE ESTERASE ,URINE NEGATIVE Leu/uL (NEGATIVE); NITRATE,URINE 2+ (NEGATIVE); OCCULT BLOOD,URINE NEGATIVE (NEGATIVE); PH,URINE 6.5 (5.0-8.0); PROTEIN,URINE 20 mg/dL (NEGATIVE); UROBILINOGEN,URINE 3 mg/dL (0.2-1.0)
[2022-06-01 21:08] LABS: BACTERIA,URINE MOD /HPF (None Seen); MUCUS,URINE FEW LPF (None Seen); SQUAMOUS EPITHELIAL CELL,UR RARE /HPF (0-2)
[2022-06-01] MEDS ORDERED: MORPHINE 2 MG SYG IVP PRN (22:00)
[2022-06-01] MEDS ORDERED: ONDANSETRON 4MG INJ IVP PRN (22:00)
[2022-06-01] MEDS ORDERED: ACETAMINOPHEN 325 MG TAB PO PRN ×2 (22:00)
[2022-06-01] MEDS ORDERED: PROMETHAZINE HCL 25 MG/ML 1ML AMPULE IM ONE (22:00)
[2022-06-01] MEDS ORDERED: MORPHINE 4 MG SYG IVP ONE (22:00)
[2022-06-01 23:49] VITALS: BP 126/61
[2022-06-02] MEDS ORDERED: OXYB15TA19 PO (00:06)
[2022-06-02] MEDS ORDERED: LEVO100 PO (00:06)
[2022-06-02] MEDS ORDERED: ALEN35TA53 PO (00:06)
[2022-06-02] MEDS ORDERED: PANT40TA54 PO (00:07)
[2022-06-02] MEDS ORDERED: ROSU20TA31 PO (00:08)
[2022-06-02] MEDS ORDERED: VIT D3 PO (00:12)
[2022-06-02] MEDS ORDERED: VIT B12 PO (00:12)
[2022-06-02] MEDS ORDERED: [UNRECOGNIZED DRUG - CODE] PO (00:16)
[2022-06-02 04:00] VITALS: BP 106/54
[2022-06-02 08:00] VITALS: BP 145/74
[2022-06-02] MEDS ORDERED: KCL 20 MEQ ERTAB PO PRN (08:00)
[2022-06-02] MEDS ORDERED: LACTULOSE 20 GM/30 ML UDCUP PO PRN (08:00)
[2022-06-02] MEDS ORDERED: LIDOCAINE HCL-MPF 1% 2ML VIAL IV PRN ×2 (08:00)
[2022-06-02] MEDS ORDERED: POTASSIUM CHLORIDE 20MEQ/100ML 100 ML IV PRN (08:00)
[2022-06-02] MEDS ORDERED: ACETAMINOPHEN 325 MG TAB PO PRN (08:00)
[2022-06-02] MEDS ORDERED: MAG/ALUM/SIMETH 30 ML UDCUP PO PRN (08:00)
[2022-06-02] MEDS ORDERED: DIPHENHYDRAMINE HCL 25 MG CAPSULE PO PRN (08:00)
[2022-06-02] MEDS ORDERED: MAGNESIUM 2GM PREMIX 50ML 50 ML IV PRN (08:00)
[2022-06-02] MEDS ORDERED: POTASSIUM CHLORIDE 10% ELIXIR 20 MEQ/15 ML UDCUP PO PRN (08:00)
[2022-06-02] MEDS ORDERED: POTASSIUM CHLORIDE 10MEQ/100ML 100 ML IV PRN (08:00)
[2022-06-02] MEDS ORDERED: ONDANSETRON 4MG INJ IV PRN (08:00)
[2022-06-02] MEDS ORDERED: DULO60CA64 PO (08:04)
[2022-06-02] MEDS ORDERED: ROPI0.5T7 PO (08:06)
[2022-06-02] MEDS ORDERED: ROPINIROLE HCL 0.25 MG TABLET PO PRN (08:30)
[2022-06-02 08:33] LABS: HEMATOCRIT 38.6 % (36-48); MEAN CORPUSCULAR HEMOGLOBIN 28.2 pg (27.0-33.0); MEAN CORPUSCULAR HGB CONC 31.9 g/dL (32.0-36.0); MEAN CORPUSCULAR VOLUME 88.5 fL (79-99); RED BLOOD CELL COUNT(AUTO) 4.36 MIL/uL (4.00-5.50); RED CELL DISTRIBUTION WIDTH 13.2 % (11.0-15.5); WHITE BLOOD COUNT (AUTO) 10.5 K/uL (4.8-10.8)
[2022-06-02] MEDS ORDERED: VERAPAMIL 180 MG PO SCH (09:00)
[2022-06-02] MEDS ORDERED: ENOXAPARIN SODIUM 40 MG/0.4 ML SYRINGE SQ SCH (09:00)
[2022-06-02] MEDS: OXYBUTYNIN 5 MG TAB.SR.24H PO SCH ×2 (10:12→10:38)
[2022-06-02] MEDS: PANTOPRAZOLE 40 MG TAB DR PO SCH ×2 (10:12→10:45)
[2022-06-02] MEDS: 0.9%NACL 1000ML 1,000 ML IV SCH ×2 (10:47→17:30)
[2022-06-02 12:00] VITALS: BP 121/57
[2022-06-02 16:00] VITALS: BP 124/66
[2022-06-02] MEDS: ACETAMINOPHEN 325 MG TAB PO PRN ×2 (16:38→22:29)
[2022-06-02 20:00] VITALS: BP 121/68
[2022-06-02] MEDS ORDERED: DULOXETINE HCL 30 MG CAP PO SCH (21:00)
[2022-06-03] VITALS: BP 119/61
[2022-06-03 04:00] VITALS: BP 124/58
[2022-06-03 04:39] LABS: CREATININE 0.9 mg/dL (0.5-1.5)
[2022-06-03] MEDS ORDERED: LEVOTHYROXINE 100 MCG TABLET PO SCH (07:30)
[2022-06-03 07:54] VITALS: BP 120/62
[2022-06-03 11:20] VITALS: BP 131/70
== END 2022-06-03 15:15 | disposition home or self-care (01) ==
LOC: EDH 17:43 → INTOOBSV 22:17 → EDHIP 22:17 → 4CH 23:24
PROVIDERS: ADMIT Internal Medicine; ATTEND Internal Medicine
DX: R10.9 Unspecified abdominal pain (principal); E03.9 Hypothyroidism, unspecified; E86.9 Volume depletion, unspecified; E66.01 Morbid (severe) obesity due to excess calories; E78.2 Mixed hyperlipidemia; F41.1 Generalized anxiety disorder; F32.1 Major depressive disorder, single episode, moderate; M19.90 Unspecified osteoarthritis, unspecified site; N39.3 Stress incontinence (female) (male); N20.0 Calculus of kidney; K21.9 Gastro-esophageal reflux disease without esophagitis; M48.02 Spinal stenosis, cervical region; K52.9 Noninfective gastroenteritis and colitis, unspecified; E88.81 Metabolic syndrome and other insulin resistance; F03.93 Unspecified dementia, unspecified severity, with mood disturbance; F03.94 Unspecified dementia, unspecified severity, with anxiety; G25.81 Restless legs syndrome; G62.9 Polyneuropathy, unspecified; G89.29 Other chronic pain; I12.9 Hypertensive chronic kidney disease with stage 1 through stage 4 chronic kidney disease, or unspecified chronic kidney disease; N18.2 Chronic kidney disease, stage 2 (mild); I25.10 Atherosclerotic heart disease of native coronary artery without angina pectoris; I47.1 Supraventricular tachycardia; L80 Vitiligo; M51.9 Unspecified thoracic, thoracolumbar and lumbosacral intervertebral disc disorder; M79.7 Fibromyalgia; E87.20 Acidosis, unspecified; R76.8 Other specified abnormal immunological findings in serum; Z68.39 Body mass index [BMI] 39.0-39.9, adult; Z79.02 Long term (current) use of antithrombotics/antiplatelets; Z79.82 Long term (current) use of aspirin; Z79.899 Other long term (current) drug therapy; Z87.440 Personal history of urinary (tract) infections; Z87.442 Personal history of urinary calculi; Z87.891 Personal history of nicotine dependence; Z90.49 Acquired absence of other specified parts of digestive tract; Z96.651 Presence of right artificial knee joint; Z98.84 Bariatric surgery status; Z98.890 Other specified postprocedural states
CPT/HCPCS: 96376; 96372 ×2; 99285; 84484; 80053; 83690; 85025; 87077; 87088; 87186; 81001; 36415 ×3; 74176; 96374; 96375; 93005; 96361 ×3; 85027; 80048; J7030; J2550; J2405 ×3; J2270 ×2; C9113; G0378 ×31; J1650

== ENCOUNTER 2022-10-22 13:13 | Emergency (ER) | payer MEDICARE ==
[~2022-10-22] VITALS: Ht 162.6 cm; Wt 96.2 kg
[~2022-10-22 13:13] MED LIST changes: -ACET-2079 PO; -AEC81 PO; +ALEN35TA53 PO; -ATOR40TA71 PO; -BUSP10TA3 PO; -CLOP75TA32 PO; -ESCI-8 PO; -FAMO20TA8 PO; +LEVO100 PO; -LEVO88TA4 PO; -MIRA50TA PO; +OXYB15TA19 PO; +PANT40TA54 PO; +ROPI0.5T7 PO; +ROSU20TA31 PO; -TOPI50CA6 PO; +VIT B12 PO; +VIT D3 PO; +[UNRECOGNIZED DRUG - CODE] PO
[2022-10-22 13:32] VITALS: BP 125/65
== END 2022-10-22 15:55 | disposition left against medical advice (07) ==
LOC: EDH 13:13
DX: M79.642 Pain in left hand (principal); Z53.21 Procedure and treatment not carried out due to patient leaving prior to being seen by health care provider
CPT/HCPCS: 99281

== ENCOUNTER 2022-10-24 06:27 | Emergency (ER) | payer MEDICARE ==
[~2022-10-24] VITALS: Ht 162.6 cm; Wt 97.5 kg
[~2022-10-24 06:27] MED LIST changes: -ROSU20TA31 PO; +ROSU20TA73 PO
[2022-10-24] MEDS ORDERED: ONDANSETRON 4MG INJ IVP ONE (08:30)
[2022-10-24] MEDS ORDERED: MORPHINE 2 MG SYG IM ONE (08:30)
[2022-10-24 09:32] VITALS: BP 134/47
[2022-10-24] MEDS ORDERED: TRAM50TA4 PO (10:05)
[2022-10-24] MEDS ORDERED: IBUP-2070 PO (10:05)
[2022-10-25] MEDS ORDERED: VALA100031 PO (10:06)
[2022-10-25] MEDS ORDERED: GABA-529 PO (10:06)
== END 2022-10-24 10:57 | disposition home or self-care (01) ==
LOC: EDH 06:27
DX: M79.672 Pain in left foot (principal); M25.522 Pain in left elbow; Z89.9 Acquired absence of limb, unspecified; I10 Essential (primary) hypertension; E03.9 Hypothyroidism, unspecified; E11.9 Type 2 diabetes mellitus without complications; E78.00 Pure hypercholesterolemia, unspecified; K21.9 Gastro-esophageal reflux disease without esophagitis; Z79.899 Other long term (current) drug therapy; Z87.440 Personal history of urinary (tract) infections; Z90.49 Acquired absence of other specified parts of digestive tract; Z90.710 Acquired absence of both cervix and uterus; Z98.890 Other specified postprocedural states
CPT/HCPCS: 99285; 96374; 84484; 73070; 93005; 96372; J2270; J2405; 96375

== ENCOUNTER 2022-10-25 08:53 | Emergency (ER) | payer MEDICARE ==
[~2022-10-25] VITALS: Ht 162.6 cm; Wt 97.1 kg
[~2022-10-25 08:53] MED LIST changes: +IBUP-2070 PO; +TRAM50TA4 PO
[2022-10-25] MEDS ORDERED: VALA100031 PO (10:06)
[2022-10-25] MEDS ORDERED: GABA-529 PO (10:06)
[2022-10-25 11:22] VITALS: BP 155/65
== END 2022-10-25 10:50 | disposition home or self-care (01) ==
LOC: EDH 08:53
DX: B02.9 Zoster without complications (principal); I10 Essential (primary) hypertension; E03.9 Hypothyroidism, unspecified; E11.9 Type 2 diabetes mellitus without complications; E78.00 Pure hypercholesterolemia, unspecified; K21.9 Gastro-esophageal reflux disease without esophagitis; M79.7 Fibromyalgia; Z79.899 Other long term (current) drug therapy; Z90.49 Acquired absence of other specified parts of digestive tract; Z90.710 Acquired absence of both cervix and uterus; Z98.890 Other specified postprocedural states

== ENCOUNTER 2024-01-06 14:34 | Emergency (ER) | payer MEDICARE ==
[~2024-01-06] VITALS: Ht 172.7 cm; Wt 104.3 kg
[~2024-01-06 14:34] MED LIST changes: +GABA-529 PO; +ROPI0.5T37 PO; -ROPI0.5T7 PO; +VALA100031 PO
[2024-01-06 15:06] LABS: BASOPHILS # (AUTO) 0.05 K/uL (0.00-0.20); BASOPHILS % (AUTO) 0.6 % (0.0-5.0); EOSINOPHILS # (AUTO) 0.02 K/uL (0.00-0.70); EOSINOPHILS % (AUTO) 0.2 % (0.0-8.0); HEMATOCRIT 44.2 % (36-48); IMMATURE GRANULOCYTE ABSOLUTE 0.03 K/uL (0-1); LYMPHOCYTES # (AUTO) 1.8 K/uL (1.0-4.8); LYMPHOCYTES % (AUTO) 21.3 % (21.0-51.0); MEAN CORPUSCULAR HEMOGLOBIN 30.3 pg (27.0-33.0); MEAN CORPUSCULAR HGB CONC 33.9 g/dL (32.0-36.0); MEAN CORPUSCULAR VOLUME 89.3 fL (79-99); MONOCYTES # (AUTO) 0.6 K/uL (0.1-1.0); MONOCYTES % (AUTO) 6.4 % (3.0-13.0); NEUTROPHILS # (AUTO) 6.1 K/uL (1.8-7.7); NEUTROPHILS % (AUTO) 71.2 % (40.0-77.0); PLATELET COUNT (AUTO) 247 K/uL (130-400); RED BLOOD CELL COUNT(AUTO) 4.95 MIL/uL (4.00-5.50); RED CELL DISTRIBUTION WIDTH 12.8 % (11.0-15.5); WHITE BLOOD COUNT (AUTO) 8.6 K/uL (4.8-10.8)
[2024-01-06 15:24] LABS: ALBUMIN 4.2 g/dL (3.5-5.0); BILIRUBIN,TOTAL 0.6 mg/dL (0.2-1.0); CREATININE 0.8 mg/dL (0.5-1.0); POTASSIUM 3.9 mmol/L (3.5-5.1); TOTAL PROTEIN, SERUM 7.9 g/dL (6.0-8.3)
[2024-01-06] MEDS: 0.9%NACL 1000ML 1,000 ML IV ONE (15:42)
[2024-01-06] MEDS: MORPHINE 2 MG SYG IVP ONE (15:42)
[2024-01-06] MEDS: ONDANSETRON 4MG INJ IVP ONE (15:42)
[2024-01-06 15:54] VITALS: BP 122/44; PULSE 60; RESP 16; O2SAT 95
[2024-01-06 16:07] LABS: APPEARANCE,URINE TURBID (CLEAR); BILIRUBIN,URINE NEGATIVE (NEGATIVE); COLOR,URINE YELLOW (YELLOW); GLUCOSE, URINE (UA) NEGATIVE (NEGATIVE); KETONES,URINE 20 mg/dL (NEGATIVE); LEUKOCYTE ESTERASE ,URINE NEGATIVE Leu/uL (NEGATIVE); NITRATE,URINE NEGATIVE (NEGATIVE); OCCULT BLOOD,URINE NEGATIVE (NEGATIVE); PROTEIN,URINE 20 mg/dL (NEGATIVE); UROBILINOGEN,URINE 0.2 mg/dL (0.2-1.0)
[2024-01-06] MEDS: FAMOTIDINE 20MG VIAL IV ONE (16:08)
[2024-01-06 16:11] LABS: ADD UA MICROSCOPIC YES
[2024-01-06 16:13] LABS: BACTERIA,URINE RARE /HPF (None Seen); MUCUS,URINE FEW LPF (None Seen); OTHER CASTS, URINE 9 /LPF (None Seen); SQUAMOUS EPITHELIAL CELL,UR RARE /HPF (0-2); UNCLASSIFIED CRYSTAL 21 /HPF (None Seen); WBC CLUMP FEW /HPF (0-1); YEAST,URINE BUDDING MOD /HPF (None Seen)
[2024-01-06] MEDS ORDERED: OMEP40CA21 PO (18:26)
[2024-01-06] MEDS ORDERED: DICY20TA2 PO (18:26)
== END 2024-01-06 18:51 | disposition home or self-care (01) ==
LOC: EDH 14:34
DX: N20.0 Calculus of kidney (principal); E66.9 Obesity, unspecified; E86.0 Dehydration; K29.70 Gastritis, unspecified, without bleeding; I10 Essential (primary) hypertension; E11.9 Type 2 diabetes mellitus without complications; E78.00 Pure hypercholesterolemia, unspecified; E03.9 Hypothyroidism, unspecified; K21.9 Gastro-esophageal reflux disease without esophagitis; M79.7 Fibromyalgia; Z79.899 Other long term (current) drug therapy; Z87.11 Personal history of peptic ulcer disease; Z90.49 Acquired absence of other specified parts of digestive tract; Z98.890 Other specified postprocedural states; Z90.710 Acquired absence of both cervix and uterus
CPT/HCPCS: 99285; 74176; 96374; 96361; 96375; 84484; 80053; 83690; 85025; 87086; 81001; 36415; 93005; J3490; J2270; J7030; J2405

== ENCOUNTER 2024-04-11 03:15 | Observation (INO) | payer MEDICARE ==
[2024-04-11] VITALS (8 sets, daily range): BP systolic 114–162; BP diastolic 44–72; PULSE 65–76; RESP 19–20; TEMP 97.9–100.1; O2SAT 93–99
[~2024-04-11] VITALS: Ht 162.6 cm; Wt 89.8 kg
[~2024-04-11 03:15] MED LIST changes: +DICY20TA2 PO; +OMEP40CA21 PO; -ROSU20TA73 PO; +ROSU20TA98 PO
--- NOTE | 2024-04-11 03:35 | ERN ---
ED Note History of Present Illness Stated Complaint: C/O RLQ PAIN WITH N X V Chief Complaint: Abdominal Pain Time Seen by MD: 03:28 Dictation: This is a 73-year-old female who presented to the emergency room with complaints of right lower quadrant abdominal pain. This is associated with nausea and vomitings this started around 6 in 100 hours. She had similar presentation on 03/27/[address] at [address] a CT scan of the abdomen and pelvis was done which showed diverticulosis as well as questionable small stones in the pelvis. No history of any fever chills rigors. No hematemesis or melena. No other family members are sick. Does report some nausea and sensation of vomitings. She was quite uncomfortable during my evaluation. Temperature 98.2 pulse 57 respirations 20 blood pressure 138/64 pulse oximetry 98% on room air Chronic medical problems include fibromyalgia, hypercholesterolemia, gastroesophageal reflux disease, hypothyroidism, restless leg syndrome, history of nephrolithiasis. Allergies: Coded Allergies: No Known Drug Allergies (Verified Allergy, Unknown, 08/17/14) Home Meds Active Scripts Omeprazole (Omeprazole) 40 Mg Capsule.dr, 40 MG PO DAILY, #30 CAP Prov:KEHINDE CONTRERAS NP 01/06/24 Dicyclomine HCl (Bentyl) 20 Mg Tab, 20 MG PO Q6HPRN, #30 TAB Prov:KEHINDE CONTRERAS [employer] 01/06/24 Gabapentin (Gabapentin) 100 Mg Capsule, 100 MG PO TID PRN for PAIN LEVEL 6 TO 10, #60 CAP Prov:KWASI GARZA MD 10/25/22 Valacyclovir HCl (Valacyclovir) 1,000 Mg Tablet, 1000 MG PO TID for 7 Days, #21 TAB Prov:KWASI GARZA MD 10/25/22 Tramadol Hcl (Tramadol HCl) 50 Mg Tablet, 50 MG PO BID, #15 TAB Prov:KWASI GARZA MD 10/24/22 Ibuprofen (Ibuprofen) 600 Mg Tablet, 600 MG PO Q6H PRN for PAIN, #30 TAB Prov:KWASI GARZA MD 10/24/22 Ropinirole HCl (Ropinirole HCl) 0.5 Mg Tablet, 0.5 MG PO HS PRN for LEG CRAMPS, #30 TAB 0 Refills Prov:VARUN LEWSI MD 06/02/22 Duloxetine HCl (Duloxetine HCl) 60 Mg Capsule.dr, 60 MG PO HS, #90 CAP 1 Refill Prov:VARUN LEWIS MD 06/02/22 Reported Medications Verapamil HCl (Calan Sr/Isoptin Sr) 180 Mg Srtab, 1 TAB PO DAILY 06/02/22 [Vit D3] No Conflict Check, 50 MG PO DAILY 06/02/22 [Vit B12] No Conflict Check, 500 MCG PO DAILY 06/02/22 Rosuvastatin Calcium (Rosuvastatin Calcium) 20 Mg Tablet, 1 TAB PO HS 06/02/22 Pantoprazole Sodium (Pantoprazole Sodium) 40 Mg Tablet.dr, 1 TAB PO DAILY 06/02/22 Levothyroxine Sodium (Levothroid/Synthroid) 100 Mcg Tab, 1 TAB PO ACBKFST 06/02/22 Oxybutynin Chloride (Oxybutynin Chloride ER) 15 Mg Tab.er.24, 1 TAB PO QDP 06/02/22 Alendronate Sodium (Alendronate Sodium) 35 Mg Tablet, 1 TAB PO QWEEK TAKES ON Wednesday06/02/22 Past Medical History Past Medical History: Fibromyalgia, High Cholesterol Additional Past Medical Hx: HX OF ACID REFLUX, HX OF KIDNEY STONES Surgical History: Hysterectomy, Cholecystectomy Surgical History Other: RT KNEE Social History: Negative, Lives with family History: Not Applicable RN Note Reviewed/Agreed w/PFSH: Yes Review of System Dictation Constitutional: Negative for fever,chills, and weight loss Eyes: Negative for injury, pain,redness, and discharge ENT: Negative for injury,pain or swelling Cardiovascular: Negative for chest pain, palpitations, and edema Respiratory: Negative for shortness of breath, cough, and wheezing, Abdomen/GI: Positive for abdominal pain, nausea, vomiting, denied diarrhea, and constipation Back: Negative for injury and pain : Negative for injury, bleeding and discharge MS/Extremity: Negative for injury and deformity Skin: Negative for rash, and discoloration Neuro: Negative for headache, weakness, numbness, tingling, and seizure Psych: Negative for suicide ideation, homicidal ideation, and hallucinations Initial Vital Sign VS Vital Signs Date Time Temp Pulse Resp B/P (MAP) Pulse Ox O2 Delivery O2 Flow Rate FiO2 04/11/24 03:16 98.2 57 20 138/64 98 Room Air Physical Exam Dictation General: awake, alert, NAD obese elderly female Head/Face: Normocephalic, atraumatic Eyes: PERRL, EOMI, vision at baseline ENT: oral cavity clear, TMs clear, no signs of infection Neck: Trachea midline, supple, no nuchal rigidity Cardiovascular: RRR, normal S1/S2, No MRGs, no JVD Respiratory: CTAB, no respiratory distress, No rales or wheezes Abdomen: Soft, tenderness in the right lower quadrant r, non-distended, normal bowel sounds, no guarding or rebound. Skin: Warm, dry, normal turgor, no rash hyperpigmented patches all over-vitiligo MS/Extremity: Pulses equal, no cyanosis, neurovascular intact, FROM Neuro: COAx4, GCS 15, strength 5/5, CN 2-12 intact, normal cerebellar exam, normal gait, Psych: Normal behavior, mood, and affect normal Extremities-trace edema without any palpable cords, Homans sign is negative Results (Laboratory/Radiology) Laboratory/Radiology Laboratory Tests Test 04/11/24 04:01 04/11/24 04:06 Urine Color LIGHT-YELLOW (YELLOW) Urine Appearance CLEAR (CLEAR) Urine pH 5.5 (5.0-8.0) Urine Specific Winter 1.030 (1.001-1.031) Urine Protein 20 mg/dL (NEGATIVE) H Urine Glucose (UA) NEGATIVE mg/dL (NEGATIVE) Urine Ketones NEGATIVE mg/dL (NEGATIVE) Urine Occult Blood NEGATIVE (NEGATIVE) Urine Nitrate NEGATIVE (NEGATIVE) Urine Bilirubin NEGATIVE mg/dL (NEGATIVE) Urine Urobilinogen 0.2 mg/dL (0.2-1.0) Urine Leukocyte Esterase NEGATIVE Molly/uL Urine RBC 6-10 /HPF (0-1) H Urine WBC 6-10 /HPF (0-1) H Urine Squamous Epithelial Cells RARE /HPF (0-2) Urine Calcium Oxalate Crystals RARE /LPF (None Seen) Urine Bacteria None /HPF (None Seen) White Blood Count 11.0 K/uL (4.8-10.8) H Red Blood Count 4.77 MIL/uL (4.00-5.50) Hemoglobin 14.7 g/dL (12.0-16.0) Hematocrit 44.1 % (36-48) Mean Corpuscular Volume 92.5 fL (79-99) Mean Corpuscular Hemoglobin 30.8 pg (27.0-33.0) Mean Corpuscular Hemoglobin Concent 33.3 g/dL (32.0-36.0) Red Cell Distribution Width 12.4 % (11.0-15.5) Platelet Count 255 K/uL (130-400) Mean Platelet Volume 9.9 fL (7.5-10.5) Immature Granulocyte % (Auto) 0.4 % (0-1) Neutrophils (%) (Auto) 65.6 % (40.0-77.0) Lymphocytes (%) (Auto) 21.6 % (21.0-51.0) Monocytes (%) (Auto) 10.3 % (3.0-13.0) Eosinophils (%) (Auto) 1.5 % (0.0-8.0) Basophils (%) (Auto) 0.6 % (0.0-5.0) Neutrophils # (Auto) 7.2 K/uL (1.8-7.7) Lymphocytes # (Auto) 2.4 K/uL (1.0-4.8) Monocytes # (Auto) 1.1 K/uL (0.1-1.0) H Eosinophils # (Auto) 0.16 K/uL (0.00-0.70) Basophils # (Auto) 0.07 K/uL (0.00-0.20) Absolute Immature Granulocyte (auto 0.04 K/uL (0-1) Nucleated Red Blood Cells 0.0 % (0.0-0.19) Sodium Level 142 mmol/L (136-145) Potassium Level 3.7 mmol/L (3.5-5.1) Chloride Level 106 mmol/L (101-111) Carbon Dioxide Level 26 mmol/L (21-32) Blood Urea Nitrogen 17 mg/dL (7-18) Creatinine 0.9 mg/dL (0.5-1.0) Glomerular Filtration Rate Calc 68 mL/min (>90) Random Glucose 119 mg/dL (70-105) H Total Calcium 10.9 mg/dL (8.5-10.1) H Lipase 48 U/L (16-77) Labs Reviewed?: Yes CT Scan Comment: PATIENT: LIV POLLACK MR#: [id number] : 1950 SEX: F AGE: 73 LOCATION: [facility] ORDER 46 STATUS: REG ER REPORT#: [id number] SERVICE 45 REASON: ABd pain, history of renal stones ORDERING PHYSICIAN: RUBEN RODRIGUEZ MD PROCEDURE: ABD PEL W - CT ABDOMEN/PELVIS W/CONTRAST CT ABDOMEN/PELVIS W/CONTRAST HISTORY: ABd pain, history of renal stones TECHNIQUE: CT ABDOMEN/PELVIS W/CONTRAST Omnipaque contrast was used. Oral contrast was not given. Coronal and sagittal reformats were obtained. CT was performed with one or more of the following dose reduction techniques: Automated exposure control, adjustment of the mA and/or kV according to the patient's size, or use of the iterative reconstruction technique. Comparison: 01/06/2024 FINDINGS: Mild atelectatic changes are seen in the lung bases. There is hepatic steatosis. Cholecystectomy changes are noted. Stable appearance of the spleen, pancreas and adrenal glands. A banding seen in the gastroesophageal junction. No hiatal hernia. No obvious hydronephrosis seen. Nonobstructing calculi versus phlebolith seen in the region of the distal bilateral ureters measuring 3 to 4 mm. Hysterectomy changes are noted. There is no bowel obstruction. Diverticulosis coli without evidence of acute diverticulitis. Mesh artifact in the ventral pelvic wall consistent with prior hernia repair. Atherosclerotic changes of the aorta with calcified plaques. Degenerative changes of the spine are seen. IMPRESSION: No obvious hydronephrosis seen. Nonobstructing calculi versus phlebolith seen in the region of the distal bilateral ureters measuring 3 to 4 mm. Additional findings as described above. DICTATED BY: CHANA ALLEN MD DATE: 03/27/242130 ELECTRONICALLY SIGNED BY: CHANA ALLEN MD DATE: 03/27/242136 ED Course ED Course Orders Procedure Category Date Status Time Vital Signs Per CPOE 04/11/24 Transmitted Routine 03:22 Saline Lock Iv CPOE 04/11/24 Transmitted 03:22 Cbc With Differential LAB 04/11/24 Complete 03:22 Lipase LAB 04/11/24 Complete 03:22 Urinalysis Profile LAB 04/11/24 Complete 03:22 Basic Metabolic Panel LAB 04/11/24 Complete 03:22 12 Lead Ekg Tracing- EKG 04/11/24 Logged Technical 04:10 Morphine 2mg Syg PHA 04/11/24 In Process (Morphine 2mg Syg) 04:30 Ondansetron 4mg Inj PHA 04/11/24 In Process (Zofran 4mg Inj) 04:30 Culture Urine PEMA 04/11/24 In Process 04:01 Blood Cult PEMA 04/11/24 Transmitted 04:56 Zosyn 3.375gm+Ns 50ml PHA 04/11/24 Transmitted (Zosyn 3.375gm+Ns 05:00 Ns 1000ml @___Ml/Hr X1 PHA 04/11/24 Transmitted 05:00 Edm Admit Bridge Order ADM 04/11/24 Transmitted 04:56 Admit Orders ADM 04/11/24 Transmitted 04:56 Npo Except Ice Chips CPOE 04/11/24 Transmitted & Meds 04:56 Morphine 2mg Syg PHA 04/11/24 Transmitted (Morphine 2mg Syg) 05:00 Ondansetron 4mg Inj PHA 04/11/24 Transmitted (Zofran 4mg Inj) 05:00 Current Medications Medications (Trade) Dose Ordered Sig/Magy Route PRN Reason Start Time Stop Time Status Last Admin Dose Admin Morphine Sulfate (morPHINE 2MG SYG) 2 mg ONCE ONCE IVP 04/11/24 04:30 04/11/24 04:31 04/11/24 04:44 Ondansetron HCl (zoFRAN 4MG INJ) 4 mg ONCE ONCE IVP 04/11/24 04:30 04/11/24 04:31 04/11/24 04:43 Vital Signs Date Time Temp Pulse Resp B/P (MAP) Pulse Ox O2 Delivery O2 Flow Rate FiO2 04/11/24 03:16 98.2 57 20 138/64 98 Room Air We will perform diagnostic labs, advanced imaging and administer medications according to the patient's complaint. Once the results are available, will review and personally interpreted the labs to rule out any acute life- threatening emergency the trach require immediate intervention and treatment. I will then re-evaluate the patient after treatment and diagnostic exams have return to determine whether the patient requires any further testing, can safely be discharged home or need further admission to hospital for additional treatment and evaluation. 4:45 [place] [address] BNP 7 with a normal limits lipase 48 This is the 2nd visit to the ER with the same presentation of right lower quadrant pain although the radiologist states that there is no diverticulitis with mild leukocytosis and severe pain it is certainly likely that she could have diverticulitis. The other possibility would be nephrolithiasis pain and renal colic pain as urinalysis does show small amount of microscopic hematuria. 4:54 a.m. on re-evaluation patient appears sicker with severe vomitings. I recommended admission to the hospital for further management and she is agr eeable Patient accepted by , for admission and further management Medical Decision Making MDM MDM: Differential diagnosis: Diverticulitis, appendicitis, medication side effects, gastroenteritis, nephrolithiasis Rationale: Tests considered and ordered secondary to shared decision making include: labs, ECG and radiology Previous outside records reviewed: Old ER visits. Risk of complication and/or morbidity or mortality of patient management: None Medications-Per medication reconciliation Need for hospitalization: Patient does meet criteria for hospitalization. Need for emergency major/minor surgery: No There are no social concerns with this patient. Prescription drug management Prescriptions will include symptomatic care Patient's prior external medical records from other ER visits were reviewed by me as indicated. Prior testing and results from previous visits were reviewed. Prior tests were taken into account with medical decision making and resource utilization, independent historian/historians were used to obtain complete medical history. I independently interpreted the test that were performed, results were reviewed by me and considered findings on radiology if ordered. Medical management and examination interpretation discussions were had by me with other qualified healthcare professionals as indicated for the patient's care. Problem List Problem List: (1) Abdominal pain (2) Diverticulosis (3) Right renal stone (4) Obesity (5) Gastritis (6) Leukocytosis (7) Intractable vomiting (8) Diverticulitis DX & DISP Disposition: Inpatient Decision to Admit Time: 05:21 Departure Impression: Primary Impression: Abdominal pain Additional Impressions: Diverticulosis, Dehydration, Obesity, Gastritis, Right renal stone, Leukocytosis, Intractable vomiting Condition: Stable Additional Instructions: Patient was informed of all the diagnostic labs and procedures conducted in the emergency room today and demonstrated understanding of the results. I personally reviewed and interpreted all the diagnostic exams performed in the ER today. The patient will be admitted to the hospital for further treatment and evaluation. Disposition-admit to facility Condition-stable/guarded Course-uncertain at this time Pain status-decreased Assessment-exam unchanged Admission Certification- I certify that the patients status is appropriate and is based on my best clinical judgment and the patient's condition as documented in the medical records Referrals: VARUN LEWIS MD (PCP) MATA MELENDREZ MD Apr 11, 2024 03:35
[2024-04-11 04:13] LABS: APPEARANCE,URINE CLEAR (CLEAR); BILIRUBIN,URINE NEGATIVE (NEGATIVE); COLOR,URINE LIGHT-YELLOW (YELLOW); GLUCOSE, URINE (UA) NEGATIVE (NEGATIVE); KETONES,URINE NEGATIVE (NEGATIVE); LEUKOCYTE ESTERASE ,URINE NEGATIVE Leu/uL (NEGATIVE); NITRATE,URINE NEGATIVE (NEGATIVE); OCCULT BLOOD,URINE NEGATIVE (NEGATIVE); PH,URINE 5.5 (5.0-8.0); PROTEIN,URINE 20 mg/dL (NEGATIVE); UROBILINOGEN,URINE 0.2 mg/dL (0.2-1.0)
[2024-04-11 04:15] LABS: BASOPHILS # (AUTO) 0.07 K/uL (0.00-0.20); BASOPHILS % (AUTO) 0.6 % (0.0-5.0); EOSINOPHILS # (AUTO) 0.16 K/uL (0.00-0.70); EOSINOPHILS % (AUTO) 1.5 % (0.0-8.0); HEMATOCRIT 44.1 % (36-48); IMMATURE GRANULOCYTE ABSOLUTE 0.04 K/uL (0-1); LYMPHOCYTES # (AUTO) 2.4 K/uL (1.0-4.8); LYMPHOCYTES % (AUTO) 21.6 % (21.0-51.0); MEAN CORPUSCULAR HEMOGLOBIN 30.8 pg (27.0-33.0); MEAN CORPUSCULAR HGB CONC 33.3 g/dL (32.0-36.0); MEAN CORPUSCULAR VOLUME 92.5 fL (79-99); MONOCYTES # (AUTO) 1.1 K/uL (0.1-1.0); MONOCYTES % (AUTO) 10.3 % (3.0-13.0); NEUTROPHILS # (AUTO) 7.2 K/uL (1.8-7.7); NEUTROPHILS % (AUTO) 65.6 % (40.0-77.0); PLATELET COUNT (AUTO) 255 K/uL (130-400); RED BLOOD CELL COUNT(AUTO) 4.77 MIL/uL (4.00-5.50); RED CELL DISTRIBUTION WIDTH 12.4 % (11.0-15.5)
[2024-04-11 04:16] LABS: ADD UA MICROSCOPIC YES
[2024-04-11 04:17] LABS: CALCIUM OXALATE CRYSTALS,UR RARE /LPF (None Seen); MUCUS,URINE FEW LPF (None Seen); SQUAMOUS EPITHELIAL CELL,UR RARE /HPF (0-2)
[2024-04-11 04:35] LABS: CREATININE 0.9 mg/dL (0.5-1.0); POTASSIUM 3.7 mmol/L (3.5-5.1)
[2024-04-11] MEDS: ondanSETRON 4MG INJ IVP ONE ×2 (04:43→13:49)
[2024-04-11] MEDS: morPHINE 2 MG SYG IVP ONE (04:44)
[2024-04-11] MEDS: 0.9%NACL 1000ML 1,000 ML IV ONE (05:39)
[2024-04-11] MEDS: ZOSYN 3.375GM +NS 50ML IV ONE (05:40)
[2024-04-11] MEDS: ondanSETRON 4MG INJ IVP PRN (05:40)
[2024-04-11] MEDS: morPHINE 2 MG SYG IVP PRN (05:40)
--- NOTE | 2024-04-11 07:04 | EKG ---
[facility] Test Date: 2024-04-11 Test Time: 04:06:59 Pat Name: LIV POLLACK Department: [facility] Room: 304 Gender: F Can Slider: [phone] : 1950 Requested By: MATA MELENDREZ Order Number: [id number] Reading MD: Renée Miller Measurements Intervals Tamms Rate: 53 P: 27 IN: 127 QRS: -1 QRSD: 93 T: 22 QT: 447 QTc: 421 Interpretive Statements Sinus rhythm Inferior infarct, old Abnrm T, consider ischemia, anterolateral lds Compared to ECG 03/27/2024 20:43:14 Possible ischemia now present Myocardial infarct finding still present Electronically Signed On 04-13-2024 17:33:59 CABLE ARMORER OPERATOR by Renée Miller Please click the below link to view image of tracing.
[2024-04-11] MEDS ORDERED: LINA145C PO (08:09)
[2024-04-11] MEDS ORDERED: CEPH500C2 PO (08:09)
[2024-04-11] MEDS ORDERED: VERA180T61 PO (08:09)
[2024-04-11] MEDS ORDERED: OXYB15TA19 PO ×2 (08:09→08:10)
--- NOTE | 2024-04-11 09:45 | HP ---
HISTORY AND PHYSICAL Date of Visit: Apr 11, 2024 Time of Visit: 09:41 ADMISSION DATE: Apr 11, 2024 at 04:56 CC: ABD PAIN HPI: THIS IS A 73 YR OLD WOMAN WITH HISTORY OF HYPOTHYROID HYPERLIPIDEMIA AND FIBROMYALGIA. SHE PRESENTED FOR RLQ ABD PAIN. SHE HAD SIMILAR EXPERIENCE A COUPLE OF WEEK AGO AND RELEASED FROM ER AND RESOLVED WITH LINZESS. SHE HAD A RECURRENCE OF SYMPTOMS ASSOCIATED WITH NAUSEA AND DENIED CONSTIPATION FEVER CHILLS DIARRHEA, URGENCY DYSURIA OR HEMATURIA. PAST MEDICAL HISTORY: HYPOTHYROIDISM, ACQUIRED MORBID OBESITY HYPERLIPIDEMIA - MIXED GEN ANXIETY D/O MAJOR DEPRESSION MODERATE SINGLE HEMORRHOIDS DJD GEN MULT SITES INCONTINENCE, FEMALE STRESS STEPHANY POSITIVE W/O LUPUS NEPHROLITHIASIS ----CALCIUM OXALATE STONES CHRONIC LBP WITH LUMBAR DISC DISEASE , S/P INJECTIONS MYELOPATHY - OTHER SPECIFIED SPONDYLOPATHIES, LUMBAR REGION VENTRAL HERNIA REPAIR CERV SPINAL STENOSIS GERD FIBROMYALGIA WITH CHRONIC PAIN SYN OSTEOPENIA VITILIGO LEFT RENAL ANGIOLIPOMA HX OF TOBACCO USE HX RECURRENT UTI'S S/P GASTRIC BANDING RIGHT GREAT TOE ONYCHOMYCOSIS S/P R TKA WITH CHRONIC SCARRING MILD 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 HX R HYDROURETER AND HYDRONEPHROSIS W HX STONES 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 CLASSIFIED ELSEWHERE RELATED TO HYPOTHYROIDISM RESTLESS LEG SYN SEDATIVE DEPENDENCE S/P L RENAL COLIC DUE TO URETERAL CALCULI, LEFT HYDRONEPHROSIS W URETERAL STENT PLACEMENT, S/P LASER LITHOTRIPSY, STONE BASKET RETRACTION AND STRING PLACEMENT S/P R RENAL COLIC W R HYDRONEPHROSIS W URETERAL STENT PLACEMENT 02/10 ATHEROSCLEROSIS OF THE AORTA S/P RIGHT KNEE REVISION ON 09/21/18 BENIGN ESSENTIAL TREMORS DEMENTIA W/O BEHAVIORAL D/O CAD - HX ACUTE CORONARY SYN -S/P HEART CATH WITH MILD DISRUPTED 30% PROXIMAL LAD LESION, 20 % RCA02/2020 -MEDICAL MANAGEMENT 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 STATIN MYALGIA SEVERE FIBROCYSTIC BREAST DISEASE SOCIAL HISTORY: FORMER [facility] FAMILY HISTORY: + DM HTN CVD Patient History: Cancer FATHER, , Age: 68, Cause: Leukemia, Onset:Unknown (LEUKEMIA) SISTER, Name: DESTINY, Onset:Unknown (BREAST CANCER) Carcinomas SISTER, Name: EDGAR Family history: Cardiovascular disease MOTHER, , Age: 87, Cause: Diabetes, Onset:Unknown Family history: Diabetes mellitus MOTHER, , Age: 87, Cause: Diabetes, Onset:Unknown SISTER, Name: EDGAR, Onset:Unknown Family history: Hypertension MOTHER, , Age: 87, Cause: Diabetes, Onset:Unknown SISTER, Name: EDGAR, Onset:Unknown No Family History of: Chronic obstructive lung disease Family history: Alzheimer's disease Family history: Asthma Parkinson's disease Stroke Sudden Unknown Allergies: Coded Allergies: No Known Drug Allergies (Verified Allergy, Unknown, 08/17/14) Scheduled Cephalexin (Cephalexin), 1 CAP PO DAILY Levothyroxine Sodium (Levothroid/Synthroid), 1 TAB PO ACBKFST, (Reported) Linaclotide (Linzess), 145 MCG PO DAILY Oxybutynin Chloride (Oxybutynin Chloride ER), 1 TAB PO HSPRN Pantoprazole Sodium (Pantoprazole Sodium), 1 TAB PO DAILY, (Reported) Rosuvastatin Calcium (Rosuvastatin Calcium), 1 TAB PO HS, (Reported) Verapamil HCl (Verapamil ER 180Mg Tab), 180 MG PO AM Discontinued Medications Alendronate Sodium (Alendronate Sodium), 1 TAB PO QWEEK, (Reported) Dicyclomine HCl (Bentyl), 20 MG PO Q6HPRN Duloxetine HCl (Duloxetine HCl), 60 MG PO HS Gabapentin (Gabapentin), 100 MG PO TID PRN for PAIN LEVEL 6 TO 10 Ibuprofen (Ibuprofen), 600 MG PO Q6H PRN for PAIN Omeprazole (Omeprazole), 40 MG PO DAILY Oxybutynin Chloride (Oxybutynin Chloride ER), 1 TAB PO QDP, (Reported) Discontinued Reason: Prescription changed Ropinirole HCl (Ropinirole HCl), 0.5 MG PO HS PRN for LEG CRAMPS Tramadol Hcl (Tramadol HCl), 50 MG PO BID Valacyclovir HCl (Valacyclovir), 1,000 MG PO TID [Vit B12], 500 MCG PO DAILY, (Reported) [Vit D3], 50 MG PO DAILY, (Reported) Review of Systems Normal Constitutional:, Normal Eyes:, Normal Ear/Nose/Mouth/Throat, Normal Cardiovascular:, Normal Respiratory:, Normal Genitourinary:, Normal Integumentary:, Normal Musculoskeletal:, Normal Neurological:, Normal Ps ychological:, Normal Endocrine:, Normal Hematologic/Lymphatic:, Normal Allergic/Immunologic:; Abnormal Gastrointestinal: (REFER TO HPI) Physical Exam Vital Signs Vital Signs Date Time Temp Pulse Resp B/P (MAP) Pulse Ox O2 Delivery O2 Flow Rate FiO2 04/11/24 03:16 98.2 57 20 138/64 98 Room Air 04/11/24 05:34 0 21 Appearance: Obese Eyes: Clear, PERRL Ear/Nose/Mouth/Throat: Landmarks WNL, Hearing WNL, Abnormal (DRY MUCOUS MEMBRANES) Neck: Symmetric, trach midline, Thyroid WNL Cardiovascular: PMI WNL, Regular Rate, Regular Rhythm Respiratory: No Retractions, No rubs/wheezing, Lungs clear G.I.: No rebound tenderness, Abnormal (DECREASED BS AND TENDER IN RLL) Lymphatic: No lymphadenopathy neck, No lymphadenopathy axilla, No lymphadenopathy groin Musculoskeletal: Gait WNL, Normal ROM Breasts: Symmetrical, no masses Skin: No rash/ulcers Neurology: Nerves I-XII intact, Sensation WNL Psychology: Insight WNL, Orientation WNL, Memory WNL, Affect WNL Diagnostics Laboratory Tests Test 04/11/24 04:01 04/11/24 04:06 Range/Units Urine Color LIGHT-YELLOW YELLOW Urine Appearance CLEAR CLEAR Urine pH 5.5 5.0-8.0 Urine Specific [place] 1.030 1.001-1.031 Urine Protein 20 NEGATIVE mg/dL Urine Glucose (UA) NEGATIVE NEGATIVE mg/dL Urine Ketones NEGATIVE NEGATIVE mg/dL Urine Occult Blood NEGATIVE NEGATIVE Urine Nitrate NEGATIVE NEGATIVE Urine Bilirubin NEGATIVE NEGATIVE mg/dL Urine Urobilinogen 0.2 0.2-1.0 mg/dL Urine Leukocyte Esterase NEGATIVE NEGATIVE Molly/uL Urine RBC 6-10 0-1 /HPF Urine WBC 6-10 0-1 /HPF Urine Squamous Epithelial Cells RARE 0-2 /HPF Urine Calcium Oxalate Crystals RARE None Seen /LPF Urine Bacteria None None Seen /HPF White Blood Count 11.0 4.8-10.8 K/uL Red Blood Count 4.77 4.00-5.50 MIL/uL Hemoglobin 14.7 12.0-16.0 g/dL Hematocrit 44.1 36-48 % Mean Corpuscular Volume 92.5 79-99 fL Mean Corpuscular Hemoglobin 30.8 27.0-33.0 pg Mean Corpuscular Hemoglobin Concent 33.3 32.0-36.0 g/dL Red Cell Distribution Width 12.4 11.0-15.5 % Platelet Count 255 130-400 K/uL Mean Platelet Volume 9.9 7.5-10.5 fL Immature Granulocyte % (Auto) 0.4 0-1 % Neutrophils (%) (Auto) 65.6 40.0-77.0 % Lymphocytes (%) (Auto) 21.6 21.0-51.0 % Monocytes (%) (Auto) 10.3 3.0-13.0 % Eosinophils (%) (Auto) 1.5 0.0-8.0 % Basophils (%) (Auto) 0.6 0.0-5.0 % Neutrophils # (Auto) 7.2 1.8-7.7 K/uL Lymphocytes # (Auto) 2.4 1.0-4.8 K/uL Monocytes # (Auto) 1.1 0.1-1.0 K/uL Eosinophils # (Auto) 0.16 0.00-0.70 K/uL Basophils # (Auto) 0.07 0.00-0.20 K/uL Absolute Immature Granulocyte (auto 0.04 0-1 K/uL Nucleated Red Blood Cells 0.0 0.0-0.19 % Sodium Level 142 136-145 mmol/L Potassium Level 3.7 3.5-5.1 mmol/L Chloride Level 106 101-111 mmol/L Carbon Dioxide Level 26 21-32 mmol/L Blood Urea Nitrogen 17 7-18 mg/dL Creatinine 0.9 0.5-1.0 mg/dL Glomerular Filtration Rate Calc 68 >90 mL/min Random Glucose 119 70-105 mg/dL Total Calcium 10.9 8.5-10.1 mg/dL Lipase 48 16-77 U/L Assessment/Plan Assessment/Plan ASSESSMENT: THIS IS A 73 YR OLD WOMAN WITH HISTORY OF HYPOTHYROIDISM, ACQUIRED MORBID OBESITY HYPERLIPIDEMIA - MIXED GEN ANXIETY D/O MAJOR DEPRESSION MODERATE SINGLE HEMORRHOIDS DJD GEN MULT SITES INCONTINENCE, FEMALE STRESS STEPHANY POSITIVE W/O LUPUS NEPHROLITHIASIS ----CALCIUM OXALATE STONES CHRONIC LBP WITH LUMBAR DISC DISEASE , S/P INJECTIONS MYELOPATHY - OTHER SPECIFIED SPONDYLOPATHIES, VENTRAL HERNIA REPAIR CERV SPINAL STENOSIS GERD FIBROMYALGIA WITH CHRONIC PAIN SYN VITILIGO LEFT RENAL ANGIOLIPOMA HX OF TOBACCO USE HX RECURRENT UTI'S S/P GASTRIC BANDING S/P R TKA WITH CHRONIC SCARRING MILD 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 HX R HYDROURETER AND HYDRONEPHROSIS W HX STONES CHRONIC URINARY INCONT - MIXED RESTLESS LEG SYN SEDATIVE DEPENDENCE S/P L RENAL COLIC DUE TO URETERAL CALCULI, LEFT HYDRONEPHROSIS W URETERAL STENT PLACEMENT, S/P LASER LITHOTRIPSY, STONE BASKET RETRACTION AND STRING PLACEMENT S/P R RENAL COLIC W R HYDRONEPHROSIS W URETERAL STENT PLACEMENT 02/10 ATHEROSCLEROSIS OF THE AORTA S/P RIGHT KNEE REVISION ON 09/21/18 BENIGN ESSENTIAL TREMORS CAD - HX ACUTE CORONARY SYN -S/P HEART CATH WITH MILD DISRUPTED 30% PROXIMAL LAD LESION, 20 % RCA02/2020 -MEDICAL MANAGEMENT 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
[2024-04-11] MEDS ORDERED: PoTASSium chl 10% ELIXIR 20MEQ 20 MEQ/15 ML UDCUP PO PRN (10:00)
[2024-04-11] MEDS ORDERED: PHARMACY COMMUNICATION MISC SCH (10:00)
[2024-04-11] MEDS ORDERED: PoTASSium chloRIDE 20MEQ ER 20 MEQ ERTAB PO PRN (10:00)
[2024-04-11] MEDS ORDERED: PoTASSium chloRIDE 20MEQ/100ML 100 ML IV PRN (10:00)
--- NOTE | 2024-04-11 10:40 | NUR ---
DCP: HOME Sw met with pt who states she lives with her Laura [phone]. Pt states she is able to complete ADLS with some difficulty. Pt has not applied for provider. Pt has been referred to [facility] in past, but [facility] was not able to assist at that time. Pt agreeable to referral again to [facility] for possible assistance.Pt uses a cane as needed, no HH or HD services. PCP is Sixto John and she uses [facility] on [address] for rx. Pt denies need for SNF, states she will return home at sc Addendum: 04/11/24 at 1059 by CARIN VALENTINO Amended: Links added.
--- NOTE | 2024-04-11 12:11 | HMCIMG ---
ABD 1VW HISTORY: Upper quadrant pain COMPARISON: None FINDINGS: A frontal projection of the abdomen was obtained. Postcholecystectomy changes are seen. A nonspecific bowel gas pattern is seen. Fecal material is seen in the colon. Degenerative changes of the thoracolumbar spine are noted. IMPRESSION: 1. A nonspecific bowel gas pattern is seen.
[2024-04-11] MEDS: ZOSYN 3.375GM+NS 50ML 50 ML IV SCH (12:13)
[2024-04-11] MEDS: BisaCODYL 10 MG SUPP.RECT RC ONE (14:23)
--- NOTE | 2024-04-11 14:23 | NUR ---
Fleet enema given as per order
[2024-04-11] MEDS: acetaMINOPHEN 325 MG TAB PO PRN (16:09)
[2024-04-11] MEDS: LACTULOSE 20 GM/30 ML UDCUP PO PRN (17:45)
[2024-04-11] MEDS: atorVAStatin 40 MG TABLET PO SCH (20:37)
--- NOTE | 2024-04-11 20:40 | NUR ---
MEDS SHIFT ASSESSMENT DONE, PLEASE REFER TO CHART. PT CLAIMS OF ABDOMINAL PAINS AND NAUSEA. MEDICATED WITH TYLENOL PO FOR PAIN NAD IV ZOFRAN FOR NAUSEA. DUE MEDS ADMINISTERED, TOLERATED WELL. WARM PACKS PROVIDED FOR ABDOMEN. KEPT RESTED AND COMFORTABLE IN BED. CALL LIGHT WITHIN REACH. WILL RE-ASSESS PT.
[2024-04-12] VITALS (9 sets, daily range): BP systolic 97–149; BP diastolic 48–74; PULSE 64–109; RESP 16–32; TEMP 98.3–102.7; O2SAT 94–97
--- NOTE | 2024-04-12 05:56 | NUR ---
ROUNDS PT SLEPT AT LONG INTERVALS DURING THE SHIFT. NO DISTRESS NOTED. KEPT COMFORTABLE IN BED. FOR MORE CARE.
[2024-04-12] MEDS: levoTHYROxine 100 MCG TABLET PO SCH (06:31)
[2024-04-12] MEDS: VERAPAMIL 180 MG PO SCH (09:00)
[2024-04-12] MEDS: acetaMINOPHEN 325 MG TAB PO PRN (11:16)
[2024-04-12] MEDS: PANTOPrazole 40 MG TAB DR PO SCH (11:21)
[2024-04-12] MEDS ORDERED: acetaMINOPHEN WITH coDEINE 1 TAB TAB PO PRN (14:30)
[2024-04-12] MEDS: 0.9% NACL 500ML IV.SOLN 500 ML IV ONE (14:30)
[2024-04-12 14:35] LABS: MEAN CORPUSCULAR HEMOGLOBIN 30.7 pg (27.0-33.0); MEAN CORPUSCULAR HGB CONC 32.8 g/dL (32.0-36.0); MEAN CORPUSCULAR VOLUME 93.8 fL (79-99); RED BLOOD CELL COUNT(AUTO) 5.01 MIL/uL (4.00-5.50); RED CELL DISTRIBUTION WIDTH 12.7 % (11.0-15.5); WHITE BLOOD COUNT (AUTO) 14.8 K/uL (4.8-10.8)
[2024-04-12 14:44] LABS: CREATININE 1.5 mg/dL (0.5-1.0); POTASSIUM 3.4 mmol/L (3.5-5.1)
--- NOTE | 2024-04-12 15:32 | HMCIMG ---
CHEST 1VW HISTORY: Fever COMPARISON: 03/20/2020 FINDINGS: A frontal projection of the chest was obtained. No acute pulmonary infiltrates is seen. The heart is borderline enlarged. Degenerative changes are seen. Prominent interstitial markings are seen. No evidence of aortic calcification is seen. IMPRESSION: 1. No acute pulmonary infiltrate is seen.
[2024-04-12] MEDS: ketOROlac 30MG VIAL (30MG/ML) IVP ONE (17:06)
[2024-04-12] MEDS: 0.9%NACL 1000ML 1,000 ML IV SCH (17:06)
[2024-04-12] MEDS: DOXYCYCLINE 100MG+NS 250ML 250 ML IV SCH (17:06)
[2024-04-12 20:12] LABS: COVID19 (SARS ANTIGEN RAPID) PRESUMPTIVE NEGATIVE (NEGATIVE); INFLUENZA TYPE A Negative For Type A (NEGATIVE); INFLUENZA TYPE B Negative For Type B (NEGATIVE)
--- NOTE | 2024-04-12 23:55 | PN ---
Subjective Review of Systems PROGRESS NOTE Date of Visit: Apr 12, 2024 Time of Visit: 23:55 Events since last encounter DID SPIKE FEVER 102 Subjective PATIENT C/O FEVER CHILLS, BILAT LBP AND HEADACHES General: No Fever, No Chills, No Night Sweats, No Fatigue, No Malaise, No Appetite, No Other HEENT: No Head Aches, No Visual Changes, No Eye Pain, No Ear Pain, No Dysphasia, No Sinus Congestion, No Post Nasal Drip, No Sore Throat, No Other Pulmonary: No Dyspnea, No Cough, No Pleuritic Chest Pain, No Other Cardiovascular: No: Chest Pain, Palpitations, Orthopnea, Paroxysmal Noc. Dyspnea, Edema, Lt Headedness, Other Gastrointestinal: Abdominal Pain (IS BETTER ); No: Nausea, Vomiting, Diarrhea, Constipation, Melena, Hematochezia, Other Genitourinary: No Dysuria, No Frequency, No Incontinence, No Hematuria, No Retention, No Other Musculoskeletal: back pain; No: other, neck pain, shoulder pain, arm pain, hand pain, leg pain, foot pain Skin: No Urticaria, No Rash, No Other Neurological: No: Weakness, Numbness, Incoordination, Change in speech, Confusion, Seizures, Other Objective Vitals and I/O Vital Sign (Last 24 Hours) 04/12/24 04/12/24 19:00 20:00 Temp 98.4 Pulse 69 Resp 32 B/P (MAP) 97/53 Pulse Ox 94 O2 Delivery Room Air* O2 Flow Rate 0 FiO2 21 Intake & Output (last 24hrs) 04/11/24 04/11/24 04/12/24 15:00 23:00 07:00 Intake Total 50.0 ml 150 ml 100 ml Output Total 200 ml Balance -150.0 ml 150 ml 100 ml General: Alert, Oriented X3, Cooperative HEENT: Atraumatic, PERRLA, EOMI Neck: Supple, No JVD, No thyromegaly Lungs: Clear to auscultation, Normal air movement, NL respiratory effort Heart: Regular rate, Regular rhythm, Normal S1, Normal S2 Abdomen: Normal bowel sounds, Soft Extremities: No clubbing, No cyanosis, No edema, Normal pulses Skin: No rashes, No breakdown Neuro: Normal gait, Strength at 5/5 X4 ext Psych/Mental Status: Mental status NL, Mood NL, Thoughts/Content NL Results RADIOLOGY: [] EKG: [] Laboratory Tests Test 04/12/24 14:31 04/12/24 19:40 White Blood Count 14.8 K/uL (4.8-10.8) H Red Blood Count 5.01 MIL/uL (4.00-5.50) Hemoglobin 15.4 g/dL (12.0-16.0) Hematocrit 47.0 % (36-48) Mean Corpuscular Volume 93.8 fL (79-99) Mean Corpuscular Hemoglobin 30.7 pg (27.0-33.0) Mean Corpuscular Hemoglobin Concent 32.8 g/dL (32.0-36.0) Red Cell Distribution Width 12.7 % (11.0-15.5) Platelet Count 224 K/uL (130-400) Mean Platelet Volume 9.6 fL (7.5-10.5) Nucleated Red Blood Cells 0.0 % (0.0-0.19) Sodium Level 140 mmol/L (136-145) Potassium Level 3.4 mmol/L (3.5-5.1) L Chloride Level 105 mmol/L (101-111) Carbon Dioxide Level 27 mmol/L (21-32) Blood Urea Nitrogen 16 mg/dL (7-18) Creatinine 1.5 mg/dL (0.5-1.0) H Glomerular Filtration Rate Calc 37 mL/min (>90) Random Glucose 105 mg/dL (70-105) Total Calcium 10.7 mg/dL (8.5-10.1) H Influenza Type A Antigen Negative For Type A Influenza Type B Antigen Negative For Type B SARS-CoV-2 Antigen (Rapid) PRESUMPTIVE NEGATIVE Medications Current Medications Morphine Sulfate 2 mg ONCE ONCE IVP Last administered on 04/11/24at 04:44; Start 04/11/24 at 04:30; Stop 04/11/24 at 08:16; Status DC Ondansetron HCl 4 mg ONCE ONCE IVP Last administered on 04/11/24at 04:43; Start 04/11/24 at 04:30; Stop 04/11/24 at 08:16; Status DC Piperacillin Sod/ Tazobactam Sod 3.375 gm ONCE ONCE IV Last administered on 04/11/24at 05:40; Start 04/11/24 at 05:00; Stop 04/11/24 at 08:16; Status DC Sodium Chloride 1,000 ml @ 125 mls/hr ONCE ONCE IV Last administered on 04/11/24at 05:39; Start 04/11/24 at 05:00; Stop 04/11/24 at 12:59; Status DC Morphine Sulfate 2 mg Q4H PRN IVP Last administered on 04/11/24at 09:26; Start 04/11/24 at 05:00; Stop 04/12/24 at 09:57; Status DC Ondansetron HCl 4 mg Q6H PRN IVP Last administered on 04/11/24at 20:39; Start 04/11/24 at 05:00; Stop 05/11/24 at 04:59 Levothyroxine Sodium 100 mcg ACBKFST PO Last administered on 04/12/24at 06:31; Start 04/12/24 at 07:30; Stop 04/12/24 at 14:19; Status DC Pantoprazole Sodium 40 mg DAILY PO Last administered on 04/12/24at 11:21; Start 04/12/24 at 09:00; Stop 05/12/24 at 08:59 Atorvastatin Calcium 80 mg HS PO Last administered on 04/12/24at 20:13; Start 04/11/24 at 21:00; Stop 05/11/24 at 20:59 Home Med Verapamil ER 180Mg Tab AM PO; Start 04/12/24 at 09:00; Stop 05/12/24 at 08:59 Acetaminophen 650 mg Q6H PRN PO Last administered on 04/12/24at 11:16; Start 04/11/24 at 09:30; Stop 05/11/24 at 09:29 Acetaminophen 650 mg Q4H PRN PO Last administered on 04/11/24at 20:39; Start 04/11/24 at 09:30; Stop 05/11/24 at 09:29 Piperacillin Sod/ Tazobactam Sod 50 ml @ 12.5 mls/hr [id number] IV Last administered on 04/11/24at 12:13; Start 04/11/24 at 13:00; Stop 04/11/24 at 13:35; Status DC Potassium Chloride 100 ml @ 100 mls/hr AD PRN IV; Start 04/11/24 at 10:00; Stop 05/11/24 at 09:59 Potassium Chloride 20 meq AD PRN PO; Start 04/11/24 at 10:00; Stop 05/11/24 at 09:59 Potassium Chloride 20 meq AD PRN PO; Start 04/11/24 at 10:00; Stop 05/11/24 at 09:59 Pharmacy Profile Note 1 each AD MISC; Start 04/11/24 at 10:00; Stop 04/18/24 at 09:59 Lactulose 20 gm QID PRN PO Last administered on 04/11/24at 17:45; Start 04/11/24 at 13:30; Stop 05/11/24 at 13:29 Ondansetron HCl 4 mg ONCE ONCE IVP; Start 04/11/24 at 13:30; Stop 04/11/24 at 13:41; Status DC Bisacodyl 10 mg ONCE ONCE RC Last administered on 04/11/24at 14:23; Start 04/11/24 at 13:30; Stop 04/11/24 at 13:41; Status DC Sodium Chloride 1,000 ml @ 150 mls/hr Q6H40M IV Last administered on 04/12/24at 17:06; Start 04/12/24 at 14:30; Stop 05/12/24 at 14:29 Sodium Chloride 500 ml @ 0 mls/hr Q0M ONCE IV Last administered on 04/12/24at 14:30; Start 04/12/24 at 14:30; Stop 04/12/24 at 14:31; Status DC Acetaminophen/ Codeine Phosphate 1 tab Q4H PRN PO; Start 04/12/24 at 14:30; Stop 05/12/24 at 14:29 Acetaminophen/ Codeine Phosphate 2 tab Q4H PRN PO; Start 04/12/24 at 14:30; Stop 05/12/24 at 14:29 Doxycycline Hyclate 250 ml @ 125 mls/hr Q12H IV Last administered on 04/12/24at 17:06; Start 04/12/24 at 14:30; Stop 04/22/24 at 14:29 Levothyroxine Sodium 100 mcg SYN PO; Start 04/13/24 at 06:30; Stop 05/12/24 at 07:29 Ketorolac Tromethamine 30 mg ONCE ONCE IVP Last administered on 04/12/24at 17:06; Start 04/12/24 at 14:30; Stop 04/12/24 at 14:31; Status DC Assessment/Plan ASSESSMENT: THIS IS A 73 YR OLD WOMAN WITH HISTORY OF HYPOTHYROIDISM, ACQUIRED MORBID OBESITY HYPERLIPIDEMIA - MIXED GEN ANXIETY D/O MAJOR DEPRESSION MODERATE SINGLE HEMORRHOIDS DJD GEN MULT SITES INCONTINENCE, FEMALE STRESS STEPHANY POSITIVE W/O LUPUS NEPHROLITHIASIS ----CALCIUM OXALATE STONES CHRONIC LBP WITH LUMBAR DISC DISEASE , S/P INJECTIONS MYELOPATHY - OTHER SP ECIFIED SPONDYLOPATHIES, VENTRAL HERNIA REPAIR CERV SPINAL STENOSIS GERD FIBROMYALGIA WITH CHRONIC PAIN SYN VITILIGO LEFT RENAL ANGIOLIPOMA HX OF TOBACCO USE HX RECURRENT UTI'S S/P GASTRIC BANDING S/P R TKA WITH CHRONIC SCARRING MILD 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 HX R HYDROURETER AND HYDRONEPHROSIS W HX STONES CHRONIC URINARY INCONT - MIXED RESTLESS LEG SYN SEDATIVE DEPENDENCE S/P L RENAL COLIC DUE TO URETERAL CALCULI, LEFT HYDRONEPHROSIS W URETERAL STENT PLACEMENT, S/P LASER LITHOTRIPSY, STONE BASKET RETRACTION AND STRING PLACEMENT S/P R RENAL COLIC W R HYDRONEPHROSIS W URETERAL STENT PLACEMENT 02/10 ATHEROSCLEROSIS OF THE AORTA S/P RIGHT KNEE REVISION ON 09/21/18 BENIGN ESSENTIAL TREMORS CAD - HX ACUTE CORONARY SYN -S/P HEART CATH WITH MILD DISRUPTED 30% PROXIMAL LAD LESION, 20 % RCA02/2020 -MEDICAL MANAGEMENT 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 STATIN MYALGIA SEVERE FIBROCYSTIC BREAST DISEASE SHE PRESENTED WITH ACUTE RLQ PAIN - NOW RESOLVED ASSOCIATED WITH NAUSEA - NOW RESOLVED POSSIBLE ACUTE DIVERTICULITIS BUT CT BENIGN LAST VISIT RECURRENT FEVER, MILD HYPOTENSION, NEW LBP AND HEADACHES PLAN: HYDRATE WITH IVF AFTER 500 NS BOLUS ORDERED WEAN ANALGESICS AND ANTI EMETICS ABD / FLANK PAIN RESOLVED WITH LAXATIVES NOW HAVING LBP BILATERAL HI FEVER MILD LEUKOCYTOSIS BLOOD AND URIN CULT NEG WILL CHECK H FLU AND COVID TAKEN OFF [facility]OS[facility] DID NOT APPEAR TO HAVE DIVERTICULITIS AND WILL CHANGE TO DOXYCYCLINE TO COVER MORE OF ATYPICAL INFECTION INC DIET AND REHAB A TOLERATED SUPPLEMENT ELECTROLYTES NEEDED SUPPORTIVE MEASURES AND MONITOR OVERNIGHT TO ENSURE RESPONDING TO TREATMENT VARUN LEWIS MD Apr 12, 2024 23:55
[2024-04-13] VITALS: BP 98/56; PULSE 58; RESP 28; TEMP 98
[2024-04-13] MEDS: acetaMINOPHEN WITH coDEINE 1 TAB TAB PO PRN (02:04)
[2024-04-13 04:00] VITALS: BP 106/50; PULSE 57; RESP 28; TEMP 98.5
[2024-04-13] MEDS: DOXYCYCLINE 100MG+NS 250ML 250 ML IV SCH (04:33)
[2024-04-13] MEDS: levoTHYROxine 100 MCG TABLET PO SCH (05:47)
[2024-04-13 06:54] LABS: HEMATOCRIT 37.2 % (36-48); MEAN CORPUSCULAR HEMOGLOBIN 30.7 pg (27.0-33.0); MEAN CORPUSCULAR HGB CONC 32.5 g/dL (32.0-36.0); MEAN CORPUSCULAR VOLUME 94.4 fL (79-99); RED BLOOD CELL COUNT(AUTO) 3.94 MIL/uL (4.00-5.50); WHITE BLOOD COUNT (AUTO) 10.1 K/uL (4.8-10.8)
[2024-04-13 08:00] VITALS: O2SAT 95
[2024-04-13 08:32] VITALS: BP 111/49; PULSE 56; RESP 18; TEMP 97.4
[2024-04-13 11:57] VITALS: BP 119/54; PULSE 57; RESP 18; TEMP 99.4
[2024-04-13] MEDS ORDERED: DOXY100C61 PO (12:45)
[2024-04-13] MEDS ORDERED: PRED20TA3 PO (13:39)
[2024-04-13 16:48] VITALS: BP 124/59; PULSE 53; RESP 18; TEMP 99.3
--- NOTE | 2024-04-13 17:50 | NUR ---
D/C INSTRUCTIONS D/C INSTRUCTION GIVEN; PATIENT AND CAREGIVER ACKNOWLEDGES. IV REMOVED.
--- NOTE | 2024-04-14 18:22 | DS ---
DISCHARGE SUMMARY Date of Visit: Apr 13, 2024 Time of Visit: 18:07 ADMISSION DATE: Apr 11, 2024 at 04:56 DISCHARGE DATE: Apr 13, 2024 ATTENDED PHYSICIAN: Delma John MD DISCHARGE DIAGNOSIS: ACUTE RLQ PAIN > LLQ PAIN - DUE TO CONSTIPATION, RESOLVED NAUSEA VOMITING DEHYDRATION, RESOLVED POSSIBLE ACUTE DIVERTICULITIS BUT CT BENIGN LAST VISIT ATYPICAL INFECTION - ASSOCIATED WITH FEVER AND HEADACHES FIBROMYALGIA FLARE HYPOTHYROIDISM, ACQUIRED MORBID OBESITY HYPERLIPIDEMIA - MIXED GEN ANXIETY D/O MAJOR DEPRESSION MODERATE SINGLE HEMORRHOIDS DJD GEN MULT SITES INCONTINENCE, FEMALE STRESS STEPHANY POSITIVE W/O LUPUS NEPHROLITHIASIS ----CALCIUM OXALATE STONES CHRONIC LBP WITH LUMBAR DISC DISEASE , S/P INJECTIONS MYELOPATHY - OTHER SPECIFIED SPONDYLOPATHIES, VENTRAL HERNIA REPAIR CERV SPINAL STENOSIS GERD FIBROMYALGIA WITH CHRONIC PAIN SYN VITILIGO LEFT RENAL ANGIOLIPOMA HX OF TOBACCO USE HX RECURRENT UTI'S S/P GASTRIC BANDING S/P R TKA WITH CHRONIC SCARRING MILD 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 HX R HYDROURETER AND HYDRONEPHROSIS W HX STONES CHRONIC URINARY INCONT - MIXED RESTLESS LEG SYN SEDATIVE DEPENDENCE S/P L RENAL COLIC DUE TO URETERAL CALCULI, LEFT HYDRONEPHROSIS W URETERAL STENT PLACEMENT, S/P LASER LITHOTRIPSY, STONE BASKET RETRACTION AND STRING PLACEMENT S/P R RENAL COLIC W R HYDRONEPHROSIS W URETERAL STENT PLACEMENT 02/10 ATHEROSCLEROSIS OF THE AORTA S/P RIGHT KNEE REVISION ON 09/21/18 BENIGN ESSENTIAL TREMORS CAD - HX ACUTE CORONARY SYN -S/P HEART CATH WITH MILD DISRUPTED 30% PROXIMAL LAD LESION, 20 % RCA02/2020 -MEDICAL MANAGEMENT 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 Postcholecystectomy changes are seen. A nonspecific bowel gas pattern is seen. Fecal material is seen in the colon. Degenerative changes of the thoracolumbar spine are noted. IMPRESSION: A nonspecific bowel gas pattern is seen with fecal material though out colon. CHEST 1VW 04/12/2024 FINDINGS: A frontal projection of the chest was obtained. No acute pulmonary infiltrates is seen. The heart is borderline enlarged. Degenerative changes are seen. Prominent interstitial markings are seen. No evidence of aortic calcification is seen. IMPRESSION: No acute pulmonary infiltrate is seen. CT ABDOMEN/PELVIS W/CONTRAST 03/27/2024 FINDINGS: Mild atelectatic changes are seen in the lung bases. There is hepatic steatosis. Cholecystectomy changes are noted. Stable appearance of the spleen, pancreas and adrenal glands. A banding seen in the gastroesophageal junction. No hiatal hernia. No obvious hydronephrosis seen. Nonobstructing calculi versus phlebolith seen in the region of the distal bilateral ureters measuring 3 to 4 mm. Hysterectomy changes are noted. There is no bowel obstruction. Diverticulosis coli without evidence of acute diverticulitis. Mesh artifact in the ventral pelvic wall consistent with prior hernia repair. Atherosclerotic changes of the aorta with calcified plaques. Degenerative changes of the spine are seen. IMPRESSION: No obvious hydronephrosis seen. Nonobstructing calculi versus phlebolith seen in the region of the distal bilateral ureters measuring 3 to 4 mm. HOSPITAL COURSE: THIS IS A 73 YR OLD WOMAN WITH THE ABOVE PAST MEDICAL HISTORY WHO PRESENTED WITH ACUTE RLQ PAIN > LLQ PAIN. SHE HAD HAD A PREVIOUS HISTORY OF THIS AND WAS IN THE ER [address] WITH A [address] OF THE ABDOMEN. SHE WAS RELEASED AND REPORTED HER PAIN RESOLVED WITH LINZESS AND GETTING HER BOWELS MOVING. THIS TIME HER PAIN WAS VERY SIMILAR BUT SHE DID NOT FEEL SHE WAS CONSTIPATED. A CT OF THE ABDOMEN WAS NOT REPEATED SINCE HER ABDOMINAL EXAM WAS TENDER BUT WITHOUT ANY REBOUND OR GUARDING. A KUB WAS DONE AND WAS FOUND TO HAVE SIGNIFICANT CONSTIPATION. ONCE SHE WAS TREATED MORE AGGRESSIVELY WITH LAXATIVES AND RESPONDED HER ABDOMINAL PAIN RESOLVED. HOWEVER, SHE DID SPIKE A TEMPERATURE AND HAD SOME MILD LEUKOCYTOSIS. SHE WAS COVERED WITH MUSCLE ACHES AND HEADACHES WITHOUT MENINGISMUS. SHE WAS TREATED FOR AN ATYPICAL INFECTION WITH DOXYCYCLINE AND HAD NO RECURRENT FEVER AND HER LEUKOCYTOSIS RESOLVED THE FOLLOWING DAY. SHE RESPONDED WELL TO THE HYDRATION AND HAD NO RECURRENT NAUSEA VOMITING. HER BLOOD AND URINE CULTURES WERE NEGATIVE WELL SWABS FOR H FLU AND COVID. SHE WAS AMBULATING WELL AND TOLERATING HER MEALS AND DISCHARGED IN STABLE CONDITION TO COMPLETE ORAL DOXYCYCLINE AND LOW DOSE OF PREDNISONE FOR A POSSIBLE FIBROMYALGIA FLARE. DIET: HEART HEALTHY ACTIVITY: PROGRESSIVE AMBULATION CONDITION: STABLE EQUIPMENT: NONE FOLLOW UP APPOINTMENT(S): DR JOHN - WAS MADE AN APPT THE FOLLOWING DAY AFTER RELEASE DISPOSITION: HOME CODE STATUS: FULL MEDICATION RECONCILIATION : RESUME PREVIOUS HOME MEDS MAY HOLD VERAPAMIL PRN SBP < 110 DOXYCYCLINE 100 MG PO BID X 1 WEEK PREDNISONE 20 MGPO DAILY X 1 WEEK ^ Home Meds Active Scripts Prednisone (Prednisone) 20 Mg Tablet, 1 TAB PO DAILY for 7 Days, #7 TAB 0 Refills TAKE IN AM WITH FOOD Prov:DELMA JOHN MD 04/13/24 Doxycycline Monohydrate (Doxycycline Monohydrate) 100 Mg Capsule, 1 CAP PO BID for 7 Days, #14 CAP 0 Refills Prov:DELMA JOHN MD 04/13/24 Oxybutynin Chloride (Oxybutynin Chloride ER) 15 Mg Tab.er.24, 1 TAB PO HSPRN, #90 TAB Prov:DELMA JOHN MD 04/11/24 Linaclotide (Linzess) 145 Mcg Capsule, 145 MCG PO DAILY, #90 CAP Prov:DELMA JOHN MD 04/11/24 Verapamil HCl (Verapamil ER 180Mg Tab) 180 Mg Tablet.er, 180 MG PO AM, #90 TAB Prov:DELMA JOHN MD 04/11/24 Reported Medications Rosuvastatin Calcium (Rosuvastatin Calcium) 20 Mg Tablet, 1 TAB PO HS 06/02/22 Pantoprazole Sodium (Pantoprazole Sodium) 40 Mg Tablet.dr, 1 TAB PO DAILY 06/02/22 Levothyroxine Sodium (Levothroid/Synthroid) 100 Mcg Tab, 1 TAB PO ACBKFST 06/02/22 Discontinued Reported Medications [Vit D3] No Conflict Check, 50 MG PO DAILY 06/02/22 [Vit B12] No Conflict Check, 500 MCG PO DAILY 06/02/22 Oxybutynin Chloride (Oxybutynin Chloride ER) 15 Mg Tab.er.24, 1 TAB PO QDP 06/02/22 Alendronate Sodium (Alendronate Sodium) 35 Mg Tablet, 1 TAB PO QWEEK TAKES ON Wednesday06/02/22 Discontinued Scripts Cephalexin (Cephalexin) 500 Mg Capsule, 1 CAP PO DAILY for 90 Days, #90 CAP 0 Refills Prov:DELMA JOHN MD 04/11/24 Omeprazole (Omeprazole) 40 Mg Capsule.dr, 40 MG PO DAILY, #30 CAP Prov:KEHINDE CONTRERAS NP 01/06/24 Dicyclomine HCl (Bentyl) 20 Mg Tab, 20 MG PO Q6HPRN, #30 TAB Prov:KEHINDE CONTRERAS Priyank INFORMATION DELIVERY ANALYST 01/06/24 Gabapentin (Gabapentin) 100 Mg Capsule, 100 MG PO TID PRN for PAIN LEVEL 6 TO 10, #60 CAP Prov:KWASI GARZA MD 10/25/22 Valacyclovir HCl (Valacyclovir) 1,000 Mg Tablet, 1000 MG PO TID for 7 Days, #21 TAB Prov:KWASI GARZA MD 10/25/22 Tramadol Hcl (Tramadol HCl) 50 Mg Tablet, 50 MG PO BID, #15 TAB Prov:KWASI GARZA MD 10/24/22 Ibuprofen (Ibuprofen) 600 Mg Tablet, 600 MG PO Q6H PRN for PAIN, #30 TAB Prov:KWASI GARZA MD 10/24/22 Ropinirole HCl (Ropinirole HCl) 0.5 Mg Tablet, 0.5 MG PO HS PRN for LEG CRAMPS, #30 TAB 0 Refills Prov:DELMA JOHN MD 06/02/22 Duloxetine HCl (Duloxetine HCl) 60 Mg Capsule.dr, 60 MG PO HS, #90 CAP 1 Refill Prov:DELMA JOHN MD 06/02/22 DELMA JOHN MD Apr 14, 2024 18:22
== END 2024-04-13 18:10 | disposition home or self-care (01) ==
LOC: EDH 03:15 → INTOOBSV 04:56 → EDHIP 04:56 → 3AH 16:37
PROVIDERS: ADMIT Internal Medicine; ATTEND Internal Medicine
DX: R10.31 Right lower quadrant pain (principal); Z20.822 Contact with and (suspected) exposure to COVID-19; R11.2 Nausea with vomiting, unspecified; A81.9 Atypical virus infection of central nervous system, unspecified; M79.7 Fibromyalgia; E66.01 Morbid (severe) obesity due to excess calories; K21.9 Gastro-esophageal reflux disease without esophagitis; E78.5 Hyperlipidemia, unspecified; K64.9 Unspecified hemorrhoids; F03.94 Unspecified dementia, unspecified severity, with anxiety; N39.3 Stress incontinence (female) (male); M19.90 Unspecified osteoarthritis, unspecified site; M48.8X6 Other specified spondylopathies, lumbar region; M48.00 Spinal stenosis, site unspecified; M85.80 Other specified disorders of bone density and structure, unspecified site; N20.0 Calculus of kidney; K57.30 Diverticulosis of large intestine without perforation or abscess without bleeding; K29.70 Gastritis, unspecified, without bleeding; F32.1 Major depressive disorder, single episode, moderate; M48.02 Spinal stenosis, cervical region; D72.829 Elevated white blood cell count, unspecified; G25.0 Essential tremor; N60.19 Diffuse cystic mastopathy of unspecified breast; E88.810 Metabolic syndrome; G95.9 Disease of spinal cord, unspecified; E03.9 Hypothyroidism, unspecified; B35.1 Tinea unguium; G62.9 Polyneuropathy, unspecified; I70.0 Atherosclerosis of aorta; G25.81 Restless legs syndrome; L80 Vitiligo; G89.29 Other chronic pain; I47.19 Other supraventricular tachycardia; I25.10 Atherosclerotic heart disease of native coronary artery without angina pectoris; N18.2 Chronic kidney disease, stage 2 (mild); D17.71 Benign lipomatous neoplasm of kidney; Z87.442 Personal history of urinary calculi; Z87.440 Personal history of urinary (tract) infections; Z98.84 Bariatric surgery status; Z79.899 Other long term (current) drug therapy; Z90.710 Acquired absence of both cervix and uterus; Z87.891 Personal history of nicotine dependence; Z96.651 Presence of right artificial knee joint
CPT/HCPCS: 96376 ×2; 96365; 96366 ×4; 99284; 80048 ×2; 83690; 85025; 87040 ×2; 87086; 82948; 81001; 36415 ×3; 74018; 96375 ×2; 93005; 85027 ×2; 87804 ×2; 87426; 71045; 96361; G0378 ×61; J2270 ×3; J7030; J2405 ×4; J2543 ×2; J1885; J3490 ×2; 99285

== ENCOUNTER 2024-09-18 22:55 | Emergency (ER) | payer MEDICARE ==
[~2024-09-18] VITALS: Ht 160 cm; Wt 90.7 kg
[~2024-09-18 22:55] MED LIST changes: -ALEN35TA53 PO; -DICY20TA2 PO; +DOXY-466 PO; -DULO60CA64 PO; -GABA-529 PO; -IBUP-2070 PO; +LINA145C PO; -OMEP40CA21 PO; +PRED20TA3 PO; -ROPI0.5T37 PO; -TRAM50TA4 PO; -VALA100031 PO; +VERA180T61 PO; -VIT B12 PO; -VIT D3 PO; -[UNRECOGNIZED DRUG - CODE] PO
--- NOTE | 2024-09-18 23:13 | ERN ---
General Chief Complaint: Flank Pain Stated Complaint: C/O RT LOWER BACK PAIN W/N X V Time Seen by MD: 22:59 History of Present Illness Initial Comments Mrs Waite is a 73-year-old female with a significant past medical history of essential hypertension morbid obesity and type 2 diabetes who presents today with the acute onset of right sided flank pain that started around 5:00 p.m. today. Patient reports she has a history of recurrent nephrolithiasis. She describes the pain as sharp severe 10/10 radiating from her right lower back to the groin. She reports associated nausea and vomiting after the onset of pain. She denies dysuria, hematuria, headache, vision changes, chest pain or shortness of breath. She reports having a history of urological procedures for kidney stones including 4-5 lithotripsies. Allergies: Coded Allergies: No Known Drug Allergies (Verified Allergy, Unknown, 08/17/14) Home Meds Active Scripts Prednisone (Prednisone) 20 Mg Tablet, 1 TAB PO DAILY for 7 Days, #7 TAB 0 Refills TAKE IN AM WITH FOOD Prov:VARUN LEWIS MD 04/13/24 Doxycycline Monohydrate (Doxycycline Monohydrate) 100 Mg Capsule, 1 CAP PO BID for 7 Days, #14 CAP 0 Refills Prov:VARUN LEWIS MD 04/13/24 Oxybutynin Chloride (Oxybutynin Chloride ER) 15 Mg Tab.er.24, 1 TAB PO HSPRN, #90 TAB Prov:VARUN LEWIS MD 04/11/24 Linaclotide (Linzess) 145 Mcg Capsule, 145 MCG PO DAILY, #90 CAP Prov:VARUN LEWIS MD 04/11/24 Verapamil HCl (Verapamil ER 180Mg Tab) 180 Mg Tablet.er, 180 MG PO AM, #90 TAB Prov:VARUN LEWIS MD 04/11/24 Reported Medications Rosuvastatin Calcium (Rosuvastatin Calcium) 20 Mg Tablet, 1 TAB PO HS 06/02/22 Pantoprazole Sodium (Pantoprazole Sodium) 40 Mg Tablet.dr, 1 TAB PO DAILY 06/02/22 Levothyroxine Sodium (Levothroid/Synthroid) 100 Mcg Tab, 1 TAB PO ACBKFST 06/02/22 Past Medical History Past Medical History: Fibromyalgia, High Cholesterol, Other Medical History Other: HX OF KIDNEY STONES Past Surgical History: Unknown Surgical History Other: RT KNEE Social History Social History: Negative, Lives with family Female( History) History: Not Applicable ROS Dictation Constitutional: Negative for fever,chills, and weight loss Eyes: Negative for injury, pain,redness, and discharge ENT: Negative for injury,pain or swelling Cardiovascular: Negative for chest pain, palpitations, and edema Respiratory: Negative for shortness of breath, cough, and wheezing, Abdomen/GI: Positive for abdominal pain, nausea and vomiting Back: Negative for injury and pain : Negative for injury, bleeding and discharge MS/Extremity: Negative for injury and deformity Skin: Negative for rash, and discoloration Neuro: Negative for headache, weakness, numbness, tingling, and seizure Psych: Negative for suicide ideation, homicidal ideation, and hallucinations Physical Exam Physical Exam Dictation General: In distress from pain Head/Face: Normocephalic, atraumatic Eyes: PERRL, EOMI, vision at baseline ENT: oral cavity clear, TMs clear, no signs of infection Neck: Trachea midline, supple, no nuchal rigidity Cardiovascular: RRR, normal S1/S2, No MRGs, no JVD Respiratory: CTAB, no respiratory distress, No rales or wheezes Abdomen: Soft nondistended mild right CVA tenderness Skin: Warm, dry, normal turgor, no rash MS/Extremity: Pulses equal, no cyanosis, neurovascular intact, FROM Neuro: COAx4, GCS 15, strength 5/5, CN 2-12 intact, normal cerebellar exam, normal gait, Psych: Anxious Results Laboratory and Microbiology Lab and Micro Result Laboratory Tests Test 09/18/24 00:02 09/19/24 00:26 White Blood Count 10.6 K/uL (4.8-10.8) Red Blood Count 3.94 MIL/uL (4.00-5.50) L Hemoglobin 12.0 g/dL (12.0-16.0) Hematocrit 36.9 % (36-48) Mean Corpuscular Volume 93.7 fL (79-99) Mean Corpuscular Hemoglobin 30.5 pg (27.0-33.0) Mean Corpuscular Hemoglobin Concent 32.5 g/dL (32.0-36.0) Red Cell Distribution Width 12.5 % (11.0-15.5) Platelet Count 200 K/uL (130-400) Mean Platelet Volume 10.0 fL (7.5-10.5) Immature Granulocyte % (Auto) 0.3 % (0-1) Neutrophils (%) (Auto) 75.0 % (40.0-77.0) Lymphocytes (%) (Auto) 16.1 % (21.0-51.0) L Monocytes (%) (Auto) 8.0 % (3.0-13.0) Eosinophils (%) (Auto) 0.2 % (0.0-8.0) Basophils (%) (Auto) 0.4 % (0.0-5.0) Neutrophils # (Auto) 7.9 K/uL (1.8-7.7) H Lymphocytes # (Auto) 1.7 K/uL (1.0-4.8) Monocytes # (Auto) 0.8 K/uL (0.1-1.0) Eosinophils # (Auto) 0.02 K/uL (0.00-0.70) Basophils # (Auto) 0.04 K/uL (0.00-0.20) Absolute Immature Granulocyte (auto 0.03 K/uL (0-1) Nucleated Red Blood Cells 0.0 % (0.0-0.19) Sodium Level 138 mmol/L (136-145) Potassium Level 3.4 mmol/L (3.5-5.1) L Chloride Level 107 mmol/L (101-111) Carbon Dioxide Level 23 mmol/L (21-32) Blood Urea Nitrogen 18 mg/dL (7-18) Creatinine 0.8 mg/dL (0.5-1.0) Glomerular Filtration Rate Calc 78 mL/min (>90) Random Glucose 125 mg/dL (70-105) H Total Calcium 8.6 mg/dL (8.5-10.1) Total Bilirubin 0.4 mg/dL (0.2-1.0) Aspartate Amino Transf (AST/SGOT) 20 U/L (10-37) Alanine Aminotransferase (ALT/SGPT) 14 U/L (12-78) Alkaline Phosphatase 118 U/L (50-136) Total Protein 6.1 g/dL (6.0-8.3) Albumin 3.4 g/dL (3.5-5.0) L Urine Color LIGHT-YELLOW (YELLOW) Urine Appearance CLEAR (CLEAR) Urine pH 5.5 (5.0-8.0) Urine Specific [place] 1.025 (1.001-1.031) Urine Protein NEGATIVE mg/dL (NEGATIVE) Urine Glucose (UA) NEGATIVE mg/dL (NEGATIVE) Urine Ketones 60 mg/dL (NEGATIVE) H Urine Occult Blood NEGATIVE (NEGATIVE) Urine Nitrate NEGATIVE (NEGATIVE) Urine Bilirubin NEGATIVE mg/dL (NEGATIVE) Urine Urobilinogen 0.2 mg/dL (0.2-1.0) Urine Leukocyte Esterase 25 Molly/uL (NEGATIVE) H MDM Patient has normal renal function and CBCs unremarkable. Patient's UA does not show any hematuria or infection. Patient was electrolytes specifically her potassium has been replaced. Patient managed with IV fluids, antiemetics and analgesia. Patient remains hemodynamically stable and tolerating oral intake. Patient was voiding without difficulty she will be discharged on Flomax for 7 days as well as Zofran 4 mg p.o.. Nausea. Patient will need follow up in 3-5 days with the Urology MDM: Differential diagnosis: Renal stone Rationale: Tests considered and ordered secondary to shared decision making include: Previous outside records reviewed: Old ER visits. Risk of complication and/or morbidity or mortality of patient management: None Medications-Per medication reconciliation Need for hospitalization: Patient does not meet criteria for hospitalization. Need for emergency major/minor surgery: No There are no social concerns with this patient. Prescription drug management Prescriptions will include symptomatic care Patient's prior external medical records from other ER visits were reviewed by me as indicated. Prior testing and results from previous visits were reviewed. Prior tests were taken into account with medical decision making and resource utilization, independent historian/historians were used to obtain complete medical history. I independently interpreted the test that were performed, results were reviewed by me and considered findings on radiology if ordered. Medical management and examination interpretation discussions were had by me with other qualified healthcare professionals as indicated for the patient's care. ED Course Orders Procedure Category Date Status Time Comprehensive LAB 09/18/24 Complete Metabolic Panel 23:05 Urinalysis Profile LAB 09/18/24 In Process 23:05 Ct Abdomen/Pelvis W/O CT 09/18/24 Resulted Contrast 23:05 0.9%Nacl 1000ml (Ns PHA 09/18/24 In Process 1000ml) 23:30 Ondansetron 4mg Inj PHA 09/18/24 Complete (Zofran 4mg Inj) 23:30 Morphine 4mg Syg PHA 09/18/24 Complete (Morphine 4mg Syg) 23:30 Hydromorphone 1 Mg PHA 09/19/24 In Process Inj (Dilaudid 1mg Inj 01:00 0.9%Nacl 1000ml (Ns PHA 09/19/24 In Process 1000ml) 00:00 Cbc With Differential LAB 09/18/24 Complete 00:02 Tamsulosin Hcl PHA 09/19/24 Complete (Flomax) 00:30 Current Medications Medications (Trade) Dose Ordered Sig/Magy Route PRN Reason Start Time Stop Time Status Last Admin Dose Admin Hydromorphone HCl (DiLAUDid 1MG INJ) 1 mg ONCE ONCE IVP 09/19/24 01:00 09/19/24 01:01 Morphine Sulfate (morPHINE 4MG SYG) 4 mg ONCE ONCE IV 09/18/24 23:30 09/18/24 23:31 DC 09/18/24 23:26 Ondansetron HCl (zoFRAN 4MG INJ) 4 mg ONCE ONCE IVP 09/18/24 23:30 09/18/24 23:31 DC 09/18/24 23:25 Sodium Chloride 1,047 ml @ 349 mls/hr ONCE ONCE IV 09/18/24 23:30 09/19/24 02:29 09/18/24 23:26 Sodium Chloride 1,047 ml @ 349 mls/hr ONCE ONCE IV 09/19/24 00:00 09/19/24 02:59 Tamsulosin HCl (FloMAX) 0.4 mg ONCE ONCE PO 09/19/24 00:30 09/19/24 00:31 DC Vital Signs Date Time Temp Pulse Resp B/P (MAP) Pulse Ox O2 Delivery O2 Flow Rate FiO2 09/18/24 23:43 98.1 58 18 118/50 94 Room Air* 0 21 09/18/24 22:58 98.4 60 20 129/78 97 Room Air DX & DISP Disposition: Discharge Departure Impression: Primary Impression: Right renal stone Condition: Stable Scripts Hydrocodone/Acetaminophen (Hydrocodon-Acetaminophen 5-325) 5 Mg-325 Mg Tablet 1 TAB PO TIDP PRN for pain for 5 Days, #15 TAB 0 Refills Prov: RUBEN RODRIGUEZ MD 09/19/24 Tamsulosin HCl (Flomax) 0.4 Mg Cap.er.24h 0.4 MG PO DAILY for 7 Days, #7 CAPSULE.DR Prov: RUBEN RODRIGUEZ MD 09/19/24 Ondansetron (Ondansetron Odt) 4 Mg Tab.rapdis 4 MG PO Q6H PRN for NAUSEA/VOMITING for 7 Days, #28 TAB Prov: RUBEN RODRIGUEZ MD 09/19/24 Additional Instructions: You were diagnosed with a kidney stone causing some swelling in your right kidney thankfully your kidney function is still good and there is no infection. Take Flomax 0.4 mg once daily to help with the stone pass take [place] 09/23/2024 as needed for severe pain. Take Zofran 4 mg as needed for nausea. Use a urine strainer to catch the stone when you urinate. Return to the immediately to the emergency department if you have a fever greater than 100.4, vomiting you can not control, severe pain not relieved by the Medicine, trouble passing urine or inability to urinate, weakness dizziness or feeling very sick. Follow up with Urology in the next 6 3-5 days to check on the stone in CBD any additional treatment. Drink plenty of fluids at home take medications exactly as prescribed. Monitor the urine for the stone Referrals: VARUN LEWIS MD (PCP) RUBEN RODRIGUEZ MD Sep 18, 2024 23:13
[2024-09-18] MEDS: ondanSETRON 4MG INJ IVP ONE (23:25)
[2024-09-18] MEDS: 0.9%NACL 1000ML 1,047 ML IV ONE (23:26)
[2024-09-18] MEDS: morPHINE 4 MG SYG IV ONE (23:26)
--- NOTE | 2024-09-18 23:40 | HMCIMG ---
CT ABDOMEN/PELVIS W/O CONTRAST HISTORY: Pain COMPARISON: 03/27/2024 TECHNIQUE: Multiple sequential axial images of the abdomen and pelvis were obtained from the dome of the diaphragm through symphysis pubis. Patient was not given contrast through intravenous route. Oral contrast was not given. FINDINGS: No pleural effusion is seen bilaterally. There is no evidence of parenchymal disease or pulmonary nodule of the visualized lower lungs. Degenerative changes of the thoracolumbar spine are present. The heart is not enlarged. Small hiatal hernia is seen. Esophageal dilatation is seen related to reflux disease. The liver, spleen, adrenal glands and pancreas are unremarkable. There is right hydronephrosis and right ureter with 5 mm renal stone in the right UV junction the subcutaneous dilatation. 2. Reflux disease.. Small right renal pelvic stones also seen. No bowel obstruction is seen. Post hernia repair changes are seen. Fecal material is seen in the colon. There are normal size retroperitoneal and mesenteric lymph nodes. No ascites is seen. Atherosclerotic changes are present. No CT evidence of acute appendicitis is seen. There is mild diverticulosis. Pelvic sidewalls are symmetric bilaterally. The bladder is poorly distended. IMPRESSION: 1. Right hydronephrosis and hydroureter with a 5 mm stone in the right UV junction. CT was performed with one or more following dose reduction techniques: automated exposure control, adjustment of the mA and kv according to patient's size, or use of a iterative reconstruction technique.
[2024-09-19 00:21] LABS: CREATININE 0.8 mg/dL (0.5-1.0); POTASSIUM 3.4 mmol/L (3.5-5.1)
[2024-09-19 00:26] LABS: ALBUMIN 3.4 g/dL (3.5-5.0); BILIRUBIN,TOTAL 0.4 mg/dL (0.2-1.0); TOTAL PROTEIN, SERUM 6.1 g/dL (6.0-8.3)
[2024-09-19 00:36] LABS: BASOPHILS # (AUTO) 0.04 K/uL (0.00-0.20); BASOPHILS % (AUTO) 0.4 % (0.0-5.0); EOSINOPHILS # (AUTO) 0.02 K/uL (0.00-0.70); EOSINOPHILS % (AUTO) 0.2 % (0.0-8.0); HEMATOCRIT 36.9 % (36-48); IMMATURE GRANULOCYTE ABSOLUTE 0.03 K/uL (0-1); LYMPHOCYTES # (AUTO) 1.7 K/uL (1.0-4.8); LYMPHOCYTES % (AUTO) 16.1 % (21.0-51.0); MEAN CORPUSCULAR HEMOGLOBIN 30.5 pg (27.0-33.0); MEAN CORPUSCULAR HGB CONC 32.5 g/dL (32.0-36.0); MEAN CORPUSCULAR VOLUME 93.7 fL (79-99); MONOCYTES # (AUTO) 0.8 K/uL (0.1-1.0); NEUTROPHILS # (AUTO) 7.9 K/uL (1.8-7.7); PLATELET COUNT (AUTO) 200 K/uL (130-400); RED BLOOD CELL COUNT(AUTO) 3.94 MIL/uL (4.00-5.50); RED CELL DISTRIBUTION WIDTH 12.5 % (11.0-15.5); WHITE BLOOD COUNT (AUTO) 10.6 K/uL (4.8-10.8)
[2024-09-19 00:42] LABS: APPEARANCE,URINE CLEAR (CLEAR); BILIRUBIN,URINE NEGATIVE (NEGATIVE); COLOR,URINE LIGHT-YELLOW (YELLOW); GLUCOSE, URINE (UA) NEGATIVE (NEGATIVE); KETONES,URINE 60 mg/dL (NEGATIVE); LEUKOCYTE ESTERASE ,URINE 25 Leu/uL (NEGATIVE); NITRATE,URINE NEGATIVE (NEGATIVE); OCCULT BLOOD,URINE NEGATIVE (NEGATIVE); PH,URINE 5.5 (5.0-8.0); PROTEIN,URINE NEGATIVE (NEGATIVE); UROBILINOGEN,URINE 0.2 mg/dL (0.2-1.0)
[2024-09-19 00:47] LABS: ADD UA MICROSCOPIC YES
[2024-09-19 00:55] LABS: MUCUS,URINE RARE LPF (None Seen); SQUAMOUS EPITHELIAL CELL,UR RARE /HPF (0-2); UNCLASSIFIED CRYSTAL 2 /HPF (None Seen)
[2024-09-19] MEDS ORDERED: HYDR-4060 PO (00:55)
[2024-09-19] MEDS ORDERED: ONDA-243 PO (00:55)
[2024-09-19] MEDS ORDERED: TAMS-55 PO (00:55)
[2024-09-19] MEDS: 0.9%NACL 1000ML 1,047 ML IV ONE (01:08)
[2024-09-19] MEDS: PoTASSium chl 10% ELIXIR 20MEQ 20 MEQ/15 ML UDCUP PO ONE (01:08)
[2024-09-19] MEDS: tamSULOsin HCL 0.4 MG CAP.ER.24H PO ONE (01:08)
[2024-09-19] MEDS: hydroMORPHone 1 MG INJ IVP ONE (01:26)
[2024-09-19 01:27] VITALS: BP 124/40; PULSE 62; RESP 20; TEMP 98.4; O2SAT 95
== END 2024-09-19 01:26 | disposition home or self-care (01) ==
LOC: EDH 22:55
DX: N13.2 Hydronephrosis with renal and ureteral calculous obstruction (principal); M79.7 Fibromyalgia; E11.9 Type 2 diabetes mellitus without complications; E66.01 Morbid (severe) obesity due to excess calories; E78.00 Pure hypercholesterolemia, unspecified; I10 Essential (primary) hypertension; Z79.52 Long term (current) use of systemic steroids; Z79.899 Other long term (current) drug therapy; Z98.890 Other specified postprocedural states
CPT/HCPCS: 99285; 74176; 96374; 96361; 96375; 80053; 85025; 81001; 36415; J7030; J2405; J2270